=== PATIENT | male | born 1945 | race Caucasian/White ===

== ENCOUNTER 2019-08-29 11:58 | Observation (INO) | payer MEDICARE ==
[2019-08-29] MEDS: Nitroglycerin 0.4 MG Tab.SL SL PRN ×3 (12:14→12:45)
[2019-08-29] MEDS: Sodium Chloride 0.9% 1,000 ML IV SCH ×2 (12:17→20:35)
[2019-08-29] MEDS ORDERED: Alum Hydroxide/Mag Hydroxide 15 ML, Lidocaine 2% 15 ML PO ONE ×2 (12:52)
--- NOTE | 2019-08-29 13:25 | EDM.PDOC ---
ED HPI GENERAL MEDICAL PROBLEM - General Chief Complaint: Chest Pain Stated Complaint: CHEST PAIN Time Seen by Provider: 08/29/19 12:30 Source of Information: Reports: Patient History Limitations: Reports: No Limitations - History of Present Illness INITIAL COMMENTS - FREE TEXT/NARRATIVE: presents with retrosternal chest pressur e, non radiaiting , associated with increased frequency of PVCs. States symptoms have león gettign worse since the lst 2 months , in varsha last 2 weeks gest fmore frequrent pressueure inthe chest , he was awake the whole of last night as it did not resove as it usaull y dose , so he came in today . No diaphoreses , prolonged dry cough , no fever or chisll , no leg swelling no orthopnea . deos get sob with exertion on occasion pt stated he has appt [facility] baby counselor on 09/12 ( initial siad he has prodcedure ), I called and was told Dr Kristen agudelo saw him 10/2018 and he has appt [facility] to be seen on 126 currently he has a monitor in place on coumadin Onset: Gradual Onset Date: 08/28/19 (lots of pain and pressure at night) Duration: Hour(s): Location: Reports: Chest Quality: Reports: Ache, Pressure Severity: Moderate Improves with: Reports: Rest Worsens with: Reports: Other (stress, had lot of stress this am) Associated Symptoms: Reports: Chest Pain, Malaise, Shortness of Breath, Weakness Treatments 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: Reports: Aspirin - Related Data Allergies Allergy/AdvReac Type Severity Reaction Status Date / Time venom-honey bee Allergy Anaphylactic Verified 12/10/13 14:51 [bee venom (honey bee)] Shock Home Meds: Home Meds Calcium Carbonate/Vitamin D3 [Calcium 600 + Vit D Tablet] 1 each PO DAILY [History] Carboxymethyl/Gly/Poly80/Pf [Refresh Optive Advanced Drops] 1 each OP QID PRN [History] Desoximetasone [Topicort 0.25% Crm] 15 gm TOP BID PRN 12/10/13 [History] Fluticasone Propionate [Flonase] 1 spray NS BID 12/10/13 [History] Furosemide [Lasix] 40 mg PO DAILY 12/10/13 [History] Metoprolol Succinate [Toprol XL] 50 mg PO DAILY 12/10/13 [History] Acetaminophen [Tylenol] 650 mg PO Q6H PRN 08/29/19 [History] Aspirin 81 mg PO DAILY 08/29/19 [History] EPINEPHrine [Epipen] 0.3 mg IM ASDIRECTED PRN 08/29/19 [History] Finasteride 5 mg PO DAILY 08/29/19 [History] Isosorbide Mononitrate [Imdur] 30 mg PO BID 08/29/19 [History] Lansoprazole [Prevacid] 30 mg PO DAILY 08/29/19 [History] Nitroglycerin [Nitrostat] 0.4 mg SL Q5M PRN 08/29/19 [History] Rosuvastatin [Crestor] 10 mg PO DAILY 08/29/19 [History] Tamsulosin [Tamsulosin 24 Hr] 0.4 mg PO DAILY 08/29/19 [History] Warfarin [Coumadin] 5 mg PO TU 08/29/19 [History] Warfarin [Coumadin] 7.5 mg PO SUMOWETHFRSA 08/29/19 [History] amLODIPine [Norvasc] 2.5 mg PO DAILY 08/29/19 [History] lisinopriL [Lisinopril] 20 mg PO DAILY 08/29/19 [History] Past Medical History Cardiovascular History: Reports: Afib, Automatic Implantable Cardioverter Defibrillators, Hypertension, ND, Stents, Syncope Genitourinary History: Reports: Other (See Below) (gross hematuria) Social & Family History - Family History Cardiac: Reports: CAD, Prior Cardiac Arrest ED ROS GENERAL - Review of Systems Review Of Systems: See Below Constitutional: Reports: Malaise, Weakness HEENT: Reports: No Symptoms Respiratory: Reports: Shortness of Breath Cardiovascular: Reports: Chest Pain Endocrine: Reports: No Symptoms GI/Abdominal: Reports: Abdominal Pain (epigastric pain) : Reports: No Symptoms Musculoskeletal: Reports: No Symptoms Neurological: Reports: No Symptoms, Headache. Denies: Trouble Speaking, Difficulty Walking, Gait Disturbance Psychiatric: Reports: Anxiety Hematologic/Lymphatic: Reports: No Symptoms Immunologic: Reports: No Symptoms ED EXAM, GENERAL - Physical Exam Exam: See Below Exam Limited By: No Limitations General Appearance: Alert, WD/WN, No Apparent Distress Ears: Normal External Exam Ear Exam: Bilateral Ear: TM normal Nose: Normal Inspection, Normal Mucosa Head: Atraumatic Neck: Supple, Non-Tender, Full Range of Motion Respiratory/Chest: Lungs Clear, Normal Breath Sounds Cardiovascular: No Edema, Irregularly Irregular GI/Abdominal: Normal Bowel Sounds, Soft, Non-Tender Back Exam: Full Range of Motion. No: CVA Tenderness (R), CVA Tenderness (L) Extremities: Normal Range of Motion. No: Pedal Edema Neurological: Alert, Oriented, CN II-XII Intact Psychiatric: Normal Affect Skin Exam: Warm, Intact Course - Vital Signs Last Recorded V/S: Last Vital Signs Temp Pulse Resp BP 114/64 08/29/19 12:45 Pulse Ox - Orders/Labs/Meds Orders: Active Orders 24 hr Category Date Time Status EKG Documentation Completion [RC] STAT Care 08/29/19 12:06 Active Chest 1V Frontal [CR] Stat Exams 08/29/19 12:06 Taken Sodium Chloride 0.9% [Normal Saline] 1,000 ml Med 08/29/19 12:15 Active IV ASDIRECTED Medication Orders Sodium Chloride (Normal Saline) 1,000 mls @ 150 mls/hr IV ASDIRECTED AYAAN Last Admin: 08/29/19 12:17 Dose: 150 mls/hr Labs: Laboratory Tests 08/29/19 08/29/19 08/29/19 Range/Units 12:21 12:21 12:21 WBC 8.9 (4.5-12.0) X10-3/uL RBC 3.85 L (4.30-5.75) x10(6)uL Hgb 8.7 L (13.5-17.8) g/dL Hct 28.4 L D (30.0-51.3) % MCV 73.8 L (80-96) fL MCH 22.7 L (27.7-33.6) pg MCHC 30.8 L (32.2-35.4) g/dL RDW 15.2 (11.5-15.5) % Plt Count 379 H (125-369) X10(3)uL MPV 8.0 (7.4-10.4) fL Neut % (Auto) 65.0 (46-82) % Lymph % (Auto) 21.8 (13-37) % [place] % (Auto) 10.8 (4-12) % Eos % (Auto) 2 (1.0-5.0) % Baso % (Auto) 1 (0-2) % Neut # (Auto) 5.8 (1.6-8.3) # Lymph # (Auto) 1.9 (0.6-5.0) # [place] # (Auto) 1.0 (0.0-1.3) # Eos # (Auto) 0.1 (0.0-0.8) # Baso # (Auto) 0.1 (0.0-0.2) # PT 22.4 H (8.7-11.1) INR 2.33 H (0.89-1.13) Sodium 139 (135-145) mmol/L Potassium 4.1 (3.5-5.3) mmol/L Chloride 102 (100-110) mmol/L Carbon Dioxide 26 (21-32) mmol/L BUN 15 (7-18) mg/dL Creatinine 0.9 (0.70-1.30) mg/dL Est Cr Clr Drug Dosing TNP Estimated GFR (MDRD) > 60 (>60) BUN/Creatinine Ratio 16.7 (9-20) Glucose 117 H (80-116) mg/dL Calcium 9.6 (8.6-10.2) mg/dL Magnesium (1.8-2.5) mg/dL Total Bilirubin 0.3 (0.1-1.3) mg/dL AST 21 (5-25) IU/L ALT 21 (12-36) U/L Alkaline Phosphatase 67 (56-112) IU/L Troponin I (<0.017-0.056) ng/mL NT-Pro-B Natriuret Pep (<=125) pg/mL Total Protein 7.5 (6.0-8.0) g/dL Albumin 3.9 (3.2-4.6) g/dL Globulin 3.6 g/dL Albumin/Globulin Ratio 1.1 08/29/19 08/29/19 08/29/19 Range/Units 12:21 12:21 12:21 WBC (4.5-12.0) X10-3/uL RBC (4.30-5.75) x10(6)uL Hgb (13.5-17.8) g/dL Hct (30.0-51.3) % MCV (80-96) fL MCH (27.7-33.6) pg MCHC (32.2-35.4) g/dL RDW (11.5-15.5) % Plt Count (125-369) X10(3)uL MPV (7.4-10.4) fL Neut % (Auto) (46-82) % Lymph % (Auto) (13-37) % [place] % (Auto) (4-12) % Eos % (Auto) (1.0-5.0) % Baso % (Auto) (0-2) % Neut # (Auto) (1.6-8.3) # Lymph # (Auto) (0.6-5.0) # [place] # (Auto) (0.0-1.3) # Eos # (Auto) (0.0-0.8) # Baso # (Auto) (0.0-0.2) # PT (8.7-11.1) INR (0.89-1.13) Sodium (135-145) mmol/L Potassium (3.5-5.3) mmol/L Chloride (100-110) mmol/L Carbon Dioxide (21-32) mmol/L BUN (7-18) mg/dL Creatinine (0.70-1.30) mg/dL Est Cr Clr Drug Dosing Estimated GFR (MDRD) (>60) BUN/Creatinine Ratio (9-20) Glucose (80-116) mg/dL Calcium (8.6-10.2) mg/dL Magnesium 1.9 (1.8-2.5) mg/dL Total Bilirubin (0.1-1.3) mg/dL AST (5-25) IU/L ALT (12-36) U/L Alkaline Phosphatase (56-112) IU/L Troponin I < 0.017 L (<0.017-0.056) ng/mL NT-Pro-B Natriuret Pep 147 H (<=125) pg/mL Total Protein (6.0-8.0) g/dL Albumin (3.2-4.6) g/dL Globulin g/dL Albumin/Globulin Ratio Meds: Medications Generic Name Dose Route Start Last Admin Trade Name Freq PRN Reason Stop Dose Admin Sodium Chloride 1,000 mls @ 150 mls/hr 08/29/19 12:15 08/29/19 12:17 Normal Saline IV 150 mls/hr ASDIRECTED AYAAN Administration Discontinued Medications Generic Name Dose Route Start Last Admin Trade Name Nilson PRN Reason Stop Dose Admin Al Hydroxide/Mg Hydroxide 15 0 ml 08/29/19 12:52 08/29/19 13:16 ml/ Lidocaine HCl 15 ml PO 08/29/19 12:53 15 ml ONETIME ONE Administration Morphine Sulfate 4 mg 08/29/19 12:10 Morphine IVPUSH 08/29/19 12:11 ONETIME ONE Nitroglycerin 0.4 mg 08/29/19 12:08 08/29/19 12:45 Nitrostat SL 0.4 mg Q5M PRN Administration Chest Pain - Re-Assessments/Exams Free Text/Narrative Re-Assessment/Exam: 08/29/19 13:59 labs reviewed, Cardiac labs are negative . has Hgb 8.7 with low MCV 08/29/19 14:00 EKG showed NSR with occasional PVC though had multiple PVCs on arrival chest pressure responded to Nitroglycerin: pt takes this as needed Departure - Departure Time of Disposition: 13:40 Disposition: Refer to Observation Clinical Impression: Unstable angina, Acute myocardial infarction, Anemia Referrals: Amadeo Levy MD [Primary Care Provider] - Forms: ED Department Discharge Sepsis Event Note - Focused Exam Vital Signs: Vital Signs BP 08/29/19 12:45 114/64 08/29/19 12:24 117/64 08/29/19 12:14 147/67 H Date Exam was Performed: 08/29/19 Time Exam was Performed: 13:48 - My Orders Last 24 Hours: My Active Orders 08/29/19 12:06 EKG Documentation Completion [RC] STAT Chest 1V Frontal [CR] Stat 08/29/19 12:15 Sodium Chloride 0.9% [Normal Saline] 1,000 ml IV ASDIRECTED - Assessment/Plan Last 24 Hours: My Active Orders 08/29/19 12:06 EKG Documentation Completion [RC] STAT Chest 1V Frontal [CR] Stat 08/29/19 12:15 Sodium Chloride 0.9% [Normal Saline] 1,000 ml IV ASDIRECTED
--- NOTE | 2019-08-29 14:06 | CR ---
INDICATION: Chest pain. CHEST, 1 VIEW: Portable AP upright view of the chest, 08/29/19 - no comparisons. The heart appears to be at the upper limits of normal in size to mildly enlarged. This is emphasized by the AP positioning, however. The aorta is tortuous and calcified in the arch area. Overlying EKG leads noted. Ventricular monitor is noted in place. No consolidating pneumonia or effusion was seen. IMPRESSION: No acute process. MTDD
[2019-08-29] MEDS ORDERED: CARBOXYMETHYL OP PRN (15:24)
[2019-08-29] MEDS ORDERED: [UNRECOGNIZED DRUG - OTHER] OP PRN (15:24)
[2019-08-29] MEDS ORDERED: GLY OP PRN (15:24)
[2019-08-29] MEDS ORDERED: Nitroglycerin 0.4 MG Tab.SL *PTOM SL PRN (15:24)
[2019-08-29] MEDS ORDERED: POLY80 OP PRN (15:24)
[2019-08-29] MEDS ORDERED: Sodium Chloride 0.65% Nasal Spray 45 ML Bottle NASBOTH PRN (15:24)
[2019-08-29] MEDS ORDERED: Warfarin Sliding Scale PO SCH (15:30)
--- NOTE | 2019-08-29 15:40 | PCM.HP.2 ---
H&P History of Present Illness - General Date of Service: 08/29/19 Admit Problem/Dx: Admission Diagnosis/Problem Admission Diagnosis/Problem Unstable angina pectoris Source of Information: Patient, Old Records, Provider - History of Present Illness Initial Comments - Free Text/Narative: Amadeo is 74 yr old male who presented to [facility] [place] this morning after having chest pressure, some shortness of breath last night, kept him awake, had EKG which showed NSR with occasional PVCs, given Aspirin 325 mg and sent to ER. He had taken Nitroglycerin x 1 prior to arrival to ER. He received 2 more doses of Nitroglycerin which helped with chest pressure. EKG showed NSR with occasional PVCs. He had ICD device check on 08/23/2019 which showed 14 atrial fibrillation episodes, 10 patient symptoms activated. Patient reported having chest pain, blacking out and fell but he states it was at Thanksgiving when that happened. He had been advised to go to ER but he did not. Defibrillator check also showed Sinus rhythm with bigeminal PVCs. He has appointment with Cardiology on Sep 12. Also history carotid artery stenosis. Last lipid was Aug 2018. Had a cologard test done which was negative. Doesn't remember when last colonoscopy was. Denies any hemoptysis, hematemesis, black or bloody stools , hematuria. Has not been told he is anemic. Last hemoglobin was 07/2018: 15. States he has more rhythm problems when he drinks coffee and has more stress. Brother reported to ER doc that he has been under more stress. - Related Data Allergies/Adverse Reactions: Allergies Allergy/AdvReac Type Severity Reaction Status Date / Time venom-honey bee Allergy Anaphylactic Verified 12/10/13 14:51 [bee venom (honey bee)] Shock Home Medications: Home Meds Calcium Carbonate/Vitamin D3 [Calcium 600 + Vit D Tablet] 3 each PO DAILY [History] Carboxymethyl/Gly/Poly80/Pf [Refresh Optive Advanced Drops] 1 each OP QID PRN [History] Furosemide [Lasix] 40 mg PO DAILY 12/10/13 [History] Metoprolol Succinate [Toprol XL] 75 mg PO DAILY 12/10/13 [History] Acetaminophen [Tylenol] 650 mg PO Q6H PRN 08/29/19 [History] Aspirin 81 mg PO DAILY 08/29/19 [History] EPINEPHrine [Epipen] 0.3 mg IM ASDIRECTED PRN 08/29/19 [History] Finasteride 5 mg PO DAILY 08/29/19 [History] Isosorbide Mononitrate [Imdur] 30 mg PO BID 08/29/19 [History] Lansoprazole [Prevacid] 30 mg PO DAILY 08/29/19 [History] Nitroglycerin [Nitrostat] 0.4 mg SL Q5M PRN 08/29/19 [History] Rosuvastatin [Crestor] 10 mg PO BEDTIME 08/29/19 [History] Sodium Chloride [Saline Nasal [place]] 1 spray NASBOTH QID PRN 08/29/19 [History] Tamsulosin [Tamsulosin 24 Hr] 0.4 mg PO DAILY 08/29/19 [History] Warfarin [Coumadin] 5 mg PO TU 08/29/19 [History] Warfarin [Coumadin] 7.5 mg PO SUMOWETHFRSA 08/29/19 [History] amLODIPine [Norvasc] 2.5 mg PO DAILY 08/29/19 [History] lisinopriL [Lisinopril] 20 mg PO DAILY 08/29/19 [History] Past Medical History Cardiovascular History: Reports: Afib, Automatic Implantable Cardioverter Defibrillators, CAD, High Cholesterol, Hypertension, DC, Stents, Syncope, Other (See Below) (carotid artery stenosis) Other Cardiovascular History: Paroxysmal atrial fibrillation Genitourinary History: Reports: Other (See Below) (gross hematuria) Hematologic History: Reports: Anticoagulation Therapy - Past Surgical History Cardiovascular Surgical History: Reports: Coronary Artery Stent GI Surgical History: Reports: Appendectomy, Hernia Repair/Other Male Surgical History: Reports: Prostatectomy (partial) Neurological Surgical History: Reports: Other (See Below) (back surgery 1976) Musculoskeletal Surgical History: Reports: Carpal Tunnel Social & Family History - Family History Cardiac: Reports: CAD, Prior Cardiac Arrest - Tobacco Use Smoking Status *Q: Former Smoker (quit 06/24/2015) - Alcohol Use Alcohol Use History: No - Recreational Drug Use Recreational Drug Use: No H&P Review of Systems - Review of Systems: Review Of Systems: See Below General: Reports: No Symptoms HEENT: Reports: No Symptoms Pulmonary: Reports: Shortness of Breath. Denies: Wheezing, Cough Cardiovascular: Reports: Chest Pain, Palpitations. Denies: Edema, Lightheadedness, Syncope Gastrointestinal: Denies: Abdominal Pain, Black Stool, Bloody Stool, Constipation, Diarrhea, Hematemesis, Nausea, Vomiting Genitourinary: Denies: Dysuria, Frequency, Hematuria Musculoskeletal: Denies: Arm Pain, Back Pain Skin: Reports: Pallor Psychiatric: Reports: No Symptoms Neurological: Reports: No Symptoms Hematologic/Lymphatic: Reports: Anemia Immunologic: Reports: Environmental Allergy Exam - Exam Exam: See Below - Vital Signs Vital Signs: Last Vital Signs Temp Pulse Resp BP 114/64 08/29/19 12:45 Pulse Ox - Exam General: Alert, Oriented, Cooperative. No: Mild Distress HEENT: PERRLA, Conjunctiva Clear, EACs Clear, EOMI, Hearing Intact, Mucosa Moist & [place], Nares Patent, Normal Nasal Septum, Posterior Pharynx Clear, TMs Clear Neck: Supple, Trachea Midline, Carotid Bruit Lungs: Clear to Auscultation, Normal Respiratory Effort Cardiovascular: Regular Rate, Regular Rhythm. No: Systolic Murmur GI/Abdominal Exam: Normal Bowel Sounds, Soft, Non-Tender, No Distention (Male) Exam: Deferred Rectal (Males) Exam: Deferred Extremities: No Pedal Edema Peripheral Pulses: 2+: Radial (L), Radial (R), Dorsalis Pedis (L), Dorsalis Pedis (R) Skin: Warm, Dry, Intact, Other (pale conjunctival mucosa) - Patient Data Lab Results Last 24 hrs: Laboratory Results - last 24 hr 08/29/19 08/29/19 08/29/19 Range/Units 12:21 12:21 12:21 WBC 8.9 (4.5-12.0) X10-3/uL RBC 3.85 L (4.30-5.75) x10(6)uL Hgb 8.7 L (13.5-17.8) g/dL Hct 28.4 L D (30.0-51.3) % MCV 73.8 L (80-96) fL MCH 22.7 L (27.7-33.6) pg MCHC 30.8 L (32.2-35.4) g/dL RDW 15.2 (11.5-15.5) % Plt Count 379 H (125-369) X10(3)uL MPV 8.0 (7.4-10.4) fL Neut % (Auto) 65.0 (46-82) % Lymph % (Auto) 21.8 (13-37) % [place] % (Auto) 10.8 (4-12) % Eos % (Auto) 2 (1.0-5.0) % Baso % (Auto) 1 (0-2) % Neut # (Auto) 5.8 (1.6-8.3) # Lymph # (Auto) 1.9 (0.6-5.0) # [place] # (Auto) 1.0 (0.0-1.3) # Eos # (Auto) 0.1 (0.0-0.8) # Baso # (Auto) 0.1 (0.0-0.2) # PT 22.4 H (8.7-11.1) INR 2.33 H (0.89-1.13) Sodium 139 (135-145) mmol/L Potassium 4.1 (3.5-5.3) mmol/L Chloride 102 (100-110) mmol/L Carbon Dioxide 26 (21-32) mmol/L BUN 15 (7-18) mg/dL Creatinine 0.9 (0.70-1.30) mg/dL Est Cr Clr Drug Dosing TNP Estimated GFR (MDRD) > 60 (>60) BUN/Creatinine Ratio 16.7 (9-20) Glucose 117 H (80-116) mg/dL Calcium 9.6 (8.6-10.2) mg/dL Magnesium (1.8-2.5) mg/dL Total Bilirubin 0.3 (0.1-1.3) mg/dL AST 21 (5-25) IU/L ALT 21 (12-36) U/L Alkaline Phosphatase 67 (56-112) IU/L Troponin I (<0.017-0.056) ng/mL NT-Pro-B Natriuret Pep (<=125) pg/mL Total Protein 7.5 (6.0-8.0) g/dL Albumin 3.9 (3.2-4.6) g/dL Globulin 3.6 g/dL Albumin/Globulin Ratio 1.1 08/29/19 08/29/19 08/29/19 Range/Units 12:21 12:21 12:21 WBC (4.5-12.0) X10-3/uL RBC (4.30-5.75) x10(6)uL Hgb (13.5-17.8) g/dL Hct (30.0-51.3) % MCV (80-96) fL MCH (27.7-33.6) pg MCHC (32.2-35.4) g/dL RDW (11.5-15.5) % Plt Count (125-369) X10(3)uL MPV (7.4-10.4) fL Neut % (Auto) (46-82) % Lymph % (Auto) (13-37) % [place] % (Auto) (4-12) % Eos % (Auto) (1.0-5.0) % Baso % (Auto) (0-2) % Neut # (Auto) (1.6-8.3) # Lymph # (Auto) (0.6-5.0) # [place] # (Auto) (0.0-1.3) # Eos # (Auto) (0.0-0.8) # Baso # (Auto) (0.0-0.2) # PT (8.7-11.1) INR (0.89-1.13) Sodium (135-145) mmol/L Potassium (3.5-5.3) mmol/L Chloride (100-110) mmol/L Carbon Dioxide (21-32) mmol/L BUN (7-18) mg/dL Creatinine (0.70-1.30) mg/dL Est Cr Clr Drug Dosing Estimated GFR (MDRD) (>60) BUN/Creatinine Ratio (9-20) Glucose (80-116) mg/dL Calcium (8.6-10.2) mg/dL Magnesium 1.9 (1.8-2.5) mg/dL Total Bilirubin (0.1-1.3) mg/dL AST (5-25) IU/L ALT (12-36) U/L Alkaline Phosphatase (56-112) IU/L Troponin I < 0.017 L (<0.017-0.056) ng/mL NT-Pro-B Natriuret Pep 147 H (<=125) pg/mL Total Protein (6.0-8.0) g/dL Albumin (3.2-4.6) g/dL Globulin g/dL Albumin/Globulin Ratio Result Diagrams: 08/29/19 12:21 08/29/19 12:21 Sepsis Event Note - Focused Exam Vital Signs: Vital Signs BP 08/29/19 12:45 114/64 08/29/19 12:24 117/64 08/29/19 12:14 147/67 H Date Exam was Performed: 08/29/19 Time Exam was Performed: 15:28 - Problem List (1) Chest pain SNOMED Code(s): 64980193 ICD Code: R07.9 - CHEST PAIN, UNSPECIFIED Status: Acute Current Visit: Yes (2) Paroxysmal atrial fibrillation SNOMED Code(s): 267068004 ICD Code: I48.0 - PAROXYSMAL ATRIAL FIBRILLATION Status: Acute Current Visit: Yes (3) Hypertension SNOMED Code(s): 86036615 ICD Code: I10 - ESSENTIAL (PRIMARY) HYPERTENSION Status: Chronic Current Visit: Yes (4) Hyperlipidemia SNOMED Code(s): 97493537 ICD Code: E78.5 - HYPERLIPIDEMIA, UNSPECIFIED Status: Chronic Current Visit: Yes (5) ICD (implantable cardioverter-defibrillator) in place SNOMED Code(s): 104225169 ICD Code: Z95.810 - PRESENCE OF AUTOMATIC (IMPLANTABLE) CARDIAC DEFIBRILLATOR Status: Chronic Current Visit: Yes Onset Date: 08/2018 Problem List Initiated/Reviewed/Updated: Yes Orders Last 24hrs: Active Orders 24 hr Category Date Time Status Patient Status [ADT] Routine ADT 08/29/19 14:46 Active Anticoag Warfarin Education *Q [RC] DAILY Care 08/29/19 15:04 Ordered Antiembolic Devices [RC] .Routine Care 08/29/19 14:48 Active Cardiac Education [RC] Click to Edit Care 08/29/19 15:04 Ordered Cardiac Monitoring [RC] CONTINUOUS Care 08/29/19 15:05 Ordered EKG Documentation Completion [RC] ASDIRECTED Care 08/29/19 18:00 Ordered EKG Documentation Completion [RC] ASDIRECTED Care 08/30/19 00:00 Ordered EKG Documentation Completion [RC] ASDIRECTED Care 08/30/19 06:00 Ordered EKG Documentation Completion [RC] STAT Care 08/29/19 12:06 Active May Shower [RC] ASDIRECTED Care 08/29/19 15:12 Ordered Oxygen Therapy [RC] PRN Care 08/29/19 15:04 Ordered Pulse Oximetry [RC] PRN Care 08/29/19 14:46 Active Up ad Patricia [RC] ASDIRECTED Care 08/29/19 15:04 Ordered VTE/DVT Education [RC] Click to Edit Care 08/29/19 14:48 Active VTE/DVT Education [RC] Per Unit Routine Care 08/29/19 15:04 Inactive Vital Signs [RC] Q4H Care 08/29/19 14:46 Active Heart Healthy Diet [DIET] Diet 08/29/19 Dinner Ordered BASIC METABOLIC PANEL,BMP [CHEM] Routine Lab 08/30/19 06:00 Ordered CBC WITH AUTO DIFF [HEME] Routine Lab 08/30/19 06:00 Ordered INR,PT,PROTHROMBIN TIME [COAG] Routine Lab 08/30/19 06:00 Ordered LIPID PANEL [CHEM] Routine Lab 08/30/19 06:00 Ordered TROPONIN I [CHEM] Routine Lab 08/29/19 18:00 Ordered TROPONIN I [CHEM] Routine Lab 08/30/19 06:00 Ordered TROPONIN I [CHEM] Timed Lab 08/30/19 00:00 Ordered Acetaminophen [Tylenol] Med 08/29/19 15:24 Ordered 650 mg PO Q6H PRN Aspirin Med 08/30/19 09:00 Ordered 81 mg PO DAILY Aspirin Med 08/30/19 09:00 Ordered 81 mg PO DAILY Calcium Carbonate/Vitamin D3 [Calcium 600 + Vit D Med 08/30/19 09:00 Ordered Tablet] 3 each PO DAILY Carboxymethyl/Gly/Poly80/Pf [Refresh Optive Advanced Med 08/29/19 15:24 Ordered Drops] 1 each OP QID PRN Finasteride [Proscar] Med 08/30/19 09:00 Ordered 5 mg PO DAILY Furosemide [Lasix] Med 08/30/19 09:00 Ordered 40 mg PO DAILY Isosorbide Mononitrate [Imdur] Med 08/29/19 21:00 Ordered 30 mg PO BID Lansoprazole [Prevacid] Med 08/30/19 09:00 Ordered 30 mg PO DAILY Metoprolol Succinate [Toprol XL] Med 08/30/19 09:00 Ordered 75 mg PO DAILY Nitroglycerin [Nitrostat] Med 08/29/19 15:24 Ordered 0.4 mg SL Q5M PRN Rosuvastatin [Crestor] Med 08/29/19 21:00 Ordered 10 mg PO BEDTIME Sodium Chloride 0.65% [Gerald Nasal [place]] Med 08/29/19 15:24 Ordered 1 spray NASBOTH QID PRN Sodium Chloride 0.9% [Normal Saline] 1,000 ml Med 08/29/19 12:15 Active IV ASDIRECTED Tamsulosin [Flomax] Med 08/30/19 09:00 Ordered 0.4 mg PO DAILY Warfarin Sliding Scale [Coumadin Sliding Scale] Med 08/29/19 15:30 Ordered 1 each PO ASDIRECTED Warfarin [Coumadin] Med 08/30/19 15:24 Ordered 5 mg PO TU Warfarin [Coumadin] Med 08/29/19 15:30 Ordered 7.5 mg PO SUMOWETHFRSA amLODIPine [Norvasc] Med 08/30/19 09:00 Ordered 2.5 mg PO DAILY lisinopriL [Prinivil] Med 08/30/19 09:00 Ordered 20 mg PO DAILY Antiembolic Hose [OM.PC] Per Unit Routine Oth 08/29/19 15:05 Ordered DVT/VTE Prophylaxis Reflex [OM.PC] Per Unit Routine Oth 08/29/19 14:46 Ordered Resuscitation Status Routine Resus Stat 08/29/19 14:45 Ordered EKG 12 Lead [EK] Routine Ther 08/30/19 00:00 Ordered EKG 12 Lead [EK] Routine Ther 08/30/19 06:00 Ordered EKG 12 Lead [EK] Urgent Ther 08/29/19 18:00 Ordered Medication Orders Acetaminophen (Tylenol) 650 mg PO Q6H PRN PRN Reason: MILD PAIN Amlodipine Besylate (Norvasc) 2.5 mg PO DAILY [facility] Aspirin (Aspirin) 81 mg PO DAILY [facility] Aspirin (Aspirin) 81 mg PO DAILY [facility] Finasteride (Proscar) 5 mg PO DAILY [facility] Furosemide (Lasix) 40 mg PO DAILY [facility] Sodium Chloride (Normal Saline) 1,000 mls @ 100 mls/hr IV ASDIRECTED AYAAN Last Admin: 08/29/19 12:17 Dose: 150 mls/hr Isosorbide Mononitrate (Imdur) 30 mg PO BID [facility] Lisinopril (Prinivil) 20 mg PO DAILY [facility] Metoprolol Succinate (Toprol Xl) 75 mg PO DAILY [facility] Nitroglycerin (Nitrostat) 0.4 mg SL Q5M PRN PRN Reason: Chest Pain Non-Formulary Medication (Calcium Carbonate/Vitamin D3 [Calcium 600 + Vit D Tablet]) 3 each PO DAILY [facility] Non-Formulary Medication (Carboxymethyl/Gly/Poly80/Pf [Refresh Optive Advanced Drops]) 1 each OP QID PRN PRN Reason: Dry Eyes Non-Formulary Medication (Lansoprazole [Prevacid]) 30 mg PO DAILY [facility] Rosuvastatin Calcium (Crestor) 10 mg PO BEDTIME [facility]YA[facility] Sodium Chloride (Gerald Nasal [place]) ml NASBOTH QID PRN PRN Reason: Dryness Tamsulosin HCl (Flomax) 0.4 mg PO DAILY [facility] Warfarin Sodium (Coumadin) 5 mg PO TU [facility] Warfarin Sodium (Coumadin) 7.5 mg PO SUMOWETHFRSA [facility] Warfarin Sodium (Coumadin Sliding Scale) 1 each PO ASDIRECTED AYAAN Assessment/Plan Comment:: 1. Admit for observation: serial cardiac enzymes & EKGs, telemetry monitoring. Lipid panel in am. Nitroglycerin prn. Continue home Lisinopril, metoprolol, Crestor. 2. INR daily, pharmacy to adjust Coumadin. 3. Fecal occult test, Iron panel in am. UA to check urine as history of gross hematuria. 4. Cardiac diet, no caffeine. 5. Continue home medications. 6. FULL CODE. - Mortality Measure Prognosis:: Good
[2019-08-29] MEDS ORDERED: Warfarin 5 MG Tab *PTOM PO SCH (17:00)
[2019-08-29] MEDS ORDERED: Rosuvastatin 10 MG Tab *PTOM PO SCH (21:00)
[2019-08-29] MEDS: Isosorbide Mononitrate 30 MG Tab.ER *PTOM PO SCH (21:32)
[2019-08-30] MEDS: Sodium Chloride 0.9% 1,000 ML IV SCH (06:44)
[2019-08-30] MEDS: Isosorbide Mononitrate 30 MG Tab.ER *PTOM PO SCH (08:43)
[2019-08-30] MEDS ORDERED: Aspirin 81 MG Tab.Chew *PTOM PO SCH (09:00)
[2019-08-30] MEDS ORDERED: Lisinopril 20 MG Tab *PTOM PO SCH (09:00)
[2019-08-30] MEDS ORDERED: Furosemide 40 MG Tab *PTOM PO SCH (09:00)
[2019-08-30] MEDS ORDERED: Metoprolol Succinate 50 MG Tab.ER *PTOM PO SCH (09:00)
[2019-08-30] MEDS ORDERED: amLODIPine 2.5 MG Tab *PTOM PO SCH (09:00)
[2019-08-30] MEDS ORDERED: Finasteride 5 MG Tab *PTOM PO SCH (09:00)
[2019-08-30] MEDS ORDERED: Aspirin 81 MG Tab.Chew PO SCH (09:00)
[2019-08-30] MEDS ORDERED: Non-Formulary Medication 1 Each (Calcium Carbonate/Vitamin D3 [Calcium 600 + Vit D Tablet] PO SCH (09:00)
[2019-08-30] MEDS ORDERED: Tamsulosin 0.4 MG Cap.ER *PTOM PO SCH (09:00)
[2019-08-30] MEDS ORDERED: Metoprolol Succinate 50 MG Tab.ER *PTOM PO ONE (09:45)
[2019-08-30 12:01] VITALS: BP 128/60; PULSE 63
--- NOTE | 2019-08-30 13:58 | PCM.DCSUM1 ---
Discharge Summary - Hospital Course HPI Initial Comments: Amadeo is 74 yr old male who presented to [facility] this morning after having chest pressure, some shortness of breath last night, kept him awake, had EKG which showed NSR with occasional PVCs, given Aspirin 325 mg and sent to ER. He had taken Nitroglycerin x 1 prior to arrival to ER. He received 2 more doses of Nitroglycerin which helped with chest pressure. EKG showed NSR with occasional PVCs. He had ICD device check on 08/23/2019 which showed 14 atrial fibrillation episodes, 10 patient symptoms activated. Patient reported having chest pain, blacking out and fell but he states it was at Thanksgiving when that happened. He had been advised to go to ER but he did not. Defibrillator check also showed Sinus rhythm with bigeminal PVCs. He has appointment with Cardiology on Sep 12. Also history carotid artery stenosis. Last lipid was Aug 2018. Had a cologard test done which was negative. Doesn't remember when last colonoscopy was. Denies any hemoptysis, hematemesis, black or bloody stools , hematuria. Has not been told he is anemic. Last hemoglobin was 07/2018: 15. States he has more rhythm problems when he drinks coffee and has more stress. Brother reported to ER doc that he has been under more stress. Diagnosis: Stroke: No - Discharge Data Discharge Date: 08/30/19 Discharge Disposition: Home, Self-Care 01 Condition: Stable - Referral to Home Health Primary Care Physician: Amadeo Levy MD - Discharge Diagnosis/Problem(s) (1) Chest pain SNOMED Code(s): 18101447 ICD Code: R07.9 - CHEST PAIN, UNSPECIFIED Status: Resolved (2) Paroxysmal atrial fibrillation SNOMED Code(s): 203477374 ICD Code: I48.0 - PAROXYSMAL ATRIAL FIBRILLATION Status: Chronic Problem Details: NSR with Trigeminy, bigeminy PVCs on telemetry. Spoke with [facility], Dr Rascon who recommended increasing his Metoprolol to 100 mg daily and ECHO which was done today, results are pending. Asymptomatic at discharge. (3) Hypertension SNOMED Code(s): 89807183 ICD Code: I10 - ESSENTIAL (PRIMARY) HYPERTENSION Status: Chronic (4) Hyperlipidemia SNOMED Code(s): 56039608 ICD Code: E78.5 - HYPERLIPIDEMIA, UNSPECIFIED Status: Chronic (5) ICD (implantable cardioverter-defibrillator) in place SNOMED Code(s): 939483489 ICD Code: Z95.810 - PRESENCE OF AUTOMATIC (IMPLANTABLE) CARDIAC DEFIBRILLATOR Status: Chronic Onset Date: 08/2018 (6) Trigeminy SNOMED Code(s): 80212809 ICD Code: R00.8 - OTHER ABNORMALITIES OF HEART BEAT Status: Acute Problem Details: fluctuates between Trigeminy & bigeminy, increase Metoloprol to 100 mg daily, ECHO and follow up with Cardiology on Sep 12. - Patient Summary/Data Hospital Course: Patient had chest pressure symptoms around 2 am, corresponded to trigeminy PVCs on telemetry, has fluctuated between trigeminy and bigeminy since 2 am but asymptomatic. 4 sets of troponin were negative. No nitroglycerin given after ER doses. Lipid panel was well controlled. UA showed no blood. FOB was negative. Iron panel pending. Will need anemia workup as outpatient. Spoke with [facility] Dr Rascon who recommended getting an ECHO and increasing his dose of Metoprolol to 100 mg daily. Patient has 50 mg tablets and 100 mg tablets at home so he will take 2 tablets of his 50 mg tablet until gone then switch to 100 mg tablet. Follow up with Cardiology on Sep 12. - Patient Instructions Diet: Heart Healthy Diet Notify Provider of: Increased Pain Other/Special Instructions: Follow up with Dr Peterson Sep 12 as previously scheduled. Follow up with Dr Levy in 2 weeks to review iron panel, further anemia workup if needed. - Discharge Plan *PRESCRIPTION DRUG MONITORING PROGRAM REVIEWED*: No *COPY OF PRESCRIPTION DRUG MONITORING REPORT IN PATIENT MARISELA: No Home Medications: Home Meds Calcium Carbonate/Vitamin D3 [Calcium 600 + Vit D Tablet] 3 each PO DAILY [History] Carboxymethyl/Gly/Poly80/Pf [Refresh Optive Advanced Drops] 1 each OP QID PRN [History] Furosemide [Lasix] 40 mg PO DAILY 12/10/13 [History] Acetaminophen [Tylenol] 650 mg PO Q6H PRN 08/29/19 [History] Aspirin 81 mg PO DAILY 08/29/19 [History] EPINEPHrine [Epipen] 0.3 mg IM ASDIRECTED PRN 08/29/19 [History] Finasteride 5 mg PO DAILY 08/29/19 [History] Isosorbide Mononitrate [Imdur] 30 mg PO BID 08/29/19 [History] Lansoprazole [Prevacid] 30 mg PO DAILY 08/29/19 [History] Nitroglycerin [Nitrostat] 0.4 mg SL Q5M PRN 08/29/19 [History] Rosuvastatin [Crestor] 10 mg PO BEDTIME 08/29/19 [History] Sodium Chloride [Saline Nasal [place]] 1 spray NASBOTH QID PRN 08/29/19 [History] Tamsulosin [Flomax] 0.4 mg PO DAILY 08/29/19 [History] Warfarin [Coumadin] 5 mg PO MO 08/29/19 [History] Warfarin [Coumadin] 7.5 mg PO SUTUWETHFRSA 08/29/19 [History] amLODIPine [Norvasc] 2.5 mg PO DAILY 08/29/19 [History] lisinopriL [Lisinopril] 20 mg PO DAILY 08/29/19 [History] Metoprolol Succinate [Toprol XL 50mg] 100 mg PO DAILY #0 tab.er 08/30/19 [Rx] Patient Handouts: Angina Pectoris Forms: ED Department Discharge Referrals: Amadeo Levy MD [Primary Care Provider] - - Discharge Summary/Plan Comment DC Time >30 min.: No - General Info Date of Service: 08/30/19 Admission Dx/Problem (Free Text: Had some chest pressure without shortness of breath this morning around 2 am. Nothing now. No black or bloody stools or blood in urine. No abdominal pain. Had bowel movement this morning. - Patient Data Vitals - Most Recent: Last Vital Signs Temp 97.9 F 08/30/19 12:00 Pulse 63 08/30/19 12:00 Resp 18 08/30/19 12:00 BP 128/60 08/30/19 12:00 Pulse Ox 99 08/30/19 12:00 Weight - Most Recent: 209 lb 5 oz I&O - Last 24 hours: Intake & Output 08/29/19 08/30/19 08/30/19 22:59 06:59 14:59 Intake Total 1046 841 400 Balance 1046 841 400 Lab Results - Last 24 hrs: Laboratory Results - last 24 hr 08/29/19 08/30/19 08/30/19 Range/Units 18:05 00:25 06:35 WBC 9.3 (4.5-12.0) X10-3/uL RBC 3.64 L (4.30-5.75) x10(6)uL Hgb 8.3 L (13.5-17.8) g/dL Hct 26.8 L (30.0-51.3) % MCV 73.5 L (80-96) fL MCH 22.8 L (27.7-33.6) pg MCHC 31.0 L (32.2-35.4) g/dL RDW 15.6 H (11.5-15.5) % Plt Count 336 (125-369) X10(3)uL MPV 8.0 (7.4-10.4) fL Neut % (Auto) 59.2 (46-82) % Lymph % (Auto) 25.3 (13-37) % [place] % (Auto) 12.1 H (4-12) % Eos % (Auto) 3 (1.0-5.0) % Baso % (Auto) 1 (0-2) % Neut # (Auto) 5.6 (1.6-8.3) # Lymph # (Auto) 2.3 (0.6-5.0) # [place] # (Auto) 1.1 (0.0-1.3) # Eos # (Auto) 0.2 (0.0-0.8) # Baso # (Auto) 0.1 (0.0-0.2) # PT (8.7-11.1) INR (0.89-1.13) Sodium (135-145) mmol/L Potassium (3.5-5.3) mmol/L Chloride (100-110) mmol/L Carbon Dioxide (21-32) mmol/L BUN (7-18) mg/dL Creatinine (0.70-1.30) mg/dL Est Cr Clr Drug Dosing mL/min Estimated GFR (MDRD) (>60) BUN/Creatinine Ratio (9-20) Glucose (80-116) mg/dL Calcium (8.6-10.2) mg/dL Troponin I < 0.017 L < 0.017 L (<0.017-0.056) ng/mL Triglycerides (15-150) mg/dL Cholesterol (50-200) mg/dL LDL Cholesterol Direct (60-130) mg/dL HDL Cholesterol (40-75) mg/dL Cholesterol/HDL Ratio (0-5) Urine Color (YELLOW) Urine Appearance (CLEAR) Urine pH (5.0-6.5) Ur Specific [place] (1.010-1.025) Urine Protein (NEGATIVE) mg/dL Urine Glucose (UA) (NORMAL) mg/dL Urine Ketones (NEGATIVE) mg/dL Urine Occult Blood (NEGATIVE) Urine Nitrite (NEGATIVE) Urine Bilirubin (NEGATIVE) Urine Urobilinogen (NEGATIVE) mg/dL Ur Leukocyte Esterase (NEGATIVE) Urine RBC (0-5) Urine WBC (0-5) Ur Squamous Epith Cells (NS,R,O) Urine Bacteria (NS) 08/30/19 08/30/19 08/30/19 Range/Units 06:35 06:35 06:35 WBC (4.5-12.0) X10-3/uL RBC (4.30-5.75) x10(6)uL Hgb (13.5-17.8) g/dL Hct (30.0-51.3) % MCV (80-96) fL MCH (27.7-33.6) pg MCHC (32.2-35.4) g/dL RDW (11.5-15.5) % Plt Count (125-369) X10(3)uL MPV (7.4-10.4) fL Neut % (Auto) (46-82) % Lymph % (Auto) (13-37) % [place] % (Auto) (4-12) % Eos % (Auto) (1.0-5.0) % Baso % (Auto) (0-2) % Neut # (Auto) (1.6-8.3) # Lymph # (Auto) (0.6-5.0) # [place] # (Auto) (0.0-1.3) # Eos # (Auto) (0.0-0.8) # Baso # (Auto) (0.0-0.2) # PT 27.2 H (8.7-11.1) INR 2.83 H (0.89-1.13) Sodium 140 (135-145) mmol/L Potassium 4.4 (3.5-5.3) mmol/L Chloride 106 (100-110) mmol/L Carbon Dioxide 24 (21-32) mmol/L BUN 13 (7-18) mg/dL Creatinine 0.7 (0.70-1.30) mg/dL Est Cr Clr Drug Dosing 100.10 mL/min Estimated GFR (MDRD) > 60 (>60) BUN/Creatinine Ratio 18.6 (9-20) Glucose 92 (80-116) mg/dL Calcium 9.0 (8.6-10.2) mg/dL Troponin I < 0.017 L (<0.017-0.056) ng/mL Triglycerides 99 (15-150) mg/dL Cholesterol 140 (50-200) mg/dL LDL Cholesterol Direct 64 (60-130) mg/dL HDL Cholesterol 54 (40-75) mg/dL Cholesterol/HDL Ratio 2.6 (0-5) Urine Color (YELLOW) Urine Appearance (CLEAR) Urine pH (5.0-6.5) Ur Specific [place] (1.010-1.025) Urine Protein (NEGATIVE) mg/dL Urine Glucose (UA) (NORMAL) mg/dL Urine Ketones (NEGATIVE) mg/dL Urine Occult Blood (NEGATIVE) Urine Nitrite (NEGATIVE) Urine Bilirubin (NEGATIVE) Urine Urobilinogen (NEGATIVE) mg/dL Ur Leukocyte Esterase (NEGATIVE) Urine RBC (0-5) Urine WBC (0-5) Ur Squamous Epith Cells (NS,R,O) Urine Bacteria (NS) 08/30/19 Range/Units 11:00 WBC (4.5-12.0) X10-3/uL RBC (4.30-5.75) x10(6)uL Hgb (13.5-17.8) g/dL Hct (30.0-51.3) % MCV (80-96) fL MCH (27.7-33.6) pg MCHC (32.2-35.4) g/dL RDW (11.5-15.5) % Plt Count (125-369) X10(3)uL MPV (7.4-10.4) fL Neut % (Auto) (46-82) % Lymph % (Auto) (13-37) % [place] % (Auto) (4-12) % Eos % (Auto) (1.0-5.0) % Baso % (Auto) (0-2) % Neut # (Auto) (1.6-8.3) # Lymph # (Auto) (0.6-5.0) # [place] # (Auto) (0.0-1.3) # Eos # (Auto) (0.0-0.8) # Baso # (Auto) (0.0-0.2) # PT (8.7-11.1) INR (0.89-1.13) Sodium (135-145) mmol/L Potassium (3.5-5.3) mmol/L Chloride (100-110) mmol/L Carbon Dioxide (21-32) mmol/L BUN (7-18) mg/dL Creatinine (0.70-1.30) mg/dL Est Cr Clr Drug Dosing mL/min Estimated GFR (MDRD) (>60) BUN/Creatinine Ratio (9-20) Glucose (80-116) mg/dL Calcium (8.6-10.2) mg/dL Troponin I (<0.017-0.056) ng/mL Triglycerides (15-150) mg/dL Cholesterol (50-200) mg/dL LDL Cholesterol Direct (60-130) mg/dL HDL Cholesterol (40-75) mg/dL Cholesterol/HDL Ratio (0-5) Urine Color Yellow (YELLOW) Urine Appearance Clear (CLEAR) Urine pH 7.0 H (5.0-6.5) Ur Specific [place] 1.005 L (1.010-1.025) Urine Protein Negative (NEGATIVE) mg/dL Urine Glucose (UA) Normal (NORMAL) mg/dL Urine Ketones Negative (NEGATIVE) mg/dL Urine Occult Blood Negative (NEGATIVE) Urine Nitrite Negative (NEGATIVE) Urine Bilirubin Negative (NEGATIVE) Urine Urobilinogen Normal (NEGATIVE) mg/dL Ur Leukocyte Esterase Small H (NEGATIVE) Urine RBC 0-5 (0-5) Urine WBC 0-5 (0-5) Ur Squamous Epith Cells Rare (NS,R,O) Urine Bacteria Few H (NS) PERLA Results - Last 24 hrs: Microbiology 08/30/19 11:45 Stool Occult Blood (PERLA) - Final Stool / Feces NEGATIVE OCCULT BLOOD REFERENCE RANGE: NEGATIVE Med Orders - Current: Current Medications Discontinued Medications Acetaminophen (Tylenol Extra Strength) 500 mg PO Q6H PRN PRN Reason: MILD PAIN Amlodipine Besylate (Norvasc) 2.5 mg PO DAILY [facility] Last Admin: 08/30/19 08:45 Dose: 2.5 mg Aspirin (Aspirin) 81 mg PO DAILY [facility] Last Admin: 08/30/19 08:42 Dose: 81 mg Al Hydroxide/Mg Hydroxide 15 (ml/ Lidocaine HCl 15 ml) 0 ml PO ONETIME ONE Stop: 08/29/19 12:53 Last Admin: 08/29/19 13:16 Dose: 15 ml Finasteride (Proscar) 5 mg PO DAILY [facility] Last Admin: 08/30/19 08:46 Dose: 5 mg Furosemide (Lasix) 40 mg PO DAILY [facility] Last Admin: 08/30/19 08:44 Dose: 40 mg Sodium Chloride (Normal Saline) 1,000 mls @ 100 mls/hr IV ASDIRECTED [facility] Last Admin: 08/30/19 06:44 Dose: 100 mls/hr Isosorbide Mononitrate (Imdur) 30 mg PO BID [facility] Last Admin: 08/30/19 08:43 Dose: 30 mg Lisinopril (Prinivil) 20 mg PO DAILY [facility] Last Admin: 08/30/19 08:44 Dose: 20 mg Metoprolol Succinate (Toprol Xl) 75 mg PO DAILY [facility] Last Admin: 08/30/19 08:47 Dose: 75 mg Metoprolol Succinate (Toprol Xl) 25 mg PO ONETIME ONE Stop: 08/30/19 09:46 Last Admin: 08/30/19 10:46 Dose: 25 mg Morphine Sulfate (Morphine) 4 mg IVPUSH ONETIME ONE Stop: 08/29/19 12:11 Last Admin: 08/29/19 15:37 Dose: Not Given Nitroglycerin (Nitrostat) 0.4 mg SL Q5M PRN PRN Reason: Chest Pain Last Admin: 08/29/19 12:45 Dose: 0.4 mg Nitroglycerin (Nitrostat) 0.4 mg SL Q5M PRN PRN Reason: Chest Pain Non-Formulary Medication (Calcium Carbonate/Vitamin D3 [Calcium 600 + Vit D Tablet]) 3 each PO DAILY [facility] Non-Formulary Medication (Carboxymethyl/Gly/Poly80/Pf [Refresh Optive Advanced Drops]) 1 each OP QID PRN PRN Reason: Dry Eyes (Lansoprazole [ Prevacid] 30 Mg) * Ptom 30 mg PO DAILY [facility] Last Admin: 08/30/19 08:44 Dose: 30 mg Rosuvastatin Calcium (Crestor) 10 mg PO BEDTIME [facility] Last Admin: 08/29/19 21:31 Dose: 10 mg Sodium Chloride ([place] Nasal [place]) 0 ml NASBOTH QID PRN PRN Reason: Dryness Tamsulosin HCl (Flomax) 0.4 mg PO DAILY [facility] Last Admin: 08/30/19 08:43 Dose: 0.4 mg Warfarin Sodium (Coumadin) 5 mg PO Mo@1600 [facility] Last Admin: 08/29/19 17:00 Dose: 5 mg Warfarin Sodium (Coumadin Sliding Scale) 1 each PO ASDIRECTED [facility] Warfarin Sodium (Coumadin) 7.5 mg PO SuTuWeThFrSa@1600 [facility] - Exam General: Reports: Alert, Oriented, Cooperative, No Acute Distress Lungs: Reports: Clear to Auscultation, Normal Respiratory Effort Cardiovascular: Reports: Regular Rate, Regular Rhythm GI/Abdominal Exam: Normal Bowel Sounds, Soft, Non-Tender, No Distention Extremities: No Pedal Edema
[2019-08-31 08:09] LABS: IRON BIND.CAP.(TIBC) 435 ug/dL (250-450); IRON SATURATION 3 % (15-55); IRON, SERUM 15 ug/dL (38-169); UIBC 420 ug/dL (111-343)
== END 2019-08-30 13:10 | disposition home or self-care (01) ==
LOC: FB.ED 11:58 → FB.MS 14:45
PROVIDERS: ADMIT Family Medicine; ATTEND Family Medicine
DX: R07.89 Other chest pain (principal); I48.0 Paroxysmal atrial fibrillation; E78.5 Hyperlipidemia, unspecified; R00.8 Other abnormalities of heart beat; I25.10 Atherosclerotic heart disease of native coronary artery without angina pectoris; I11.0 Hypertensive heart disease with heart failure; I50.9 Heart failure, unspecified; E78.00 Pure hypercholesterolemia, unspecified; I25.2 Old myocardial infarction; Z95.810 Presence of automatic (implantable) cardiac defibrillator; Z91.030 Bee allergy status; Z95.5 Presence of coronary angioplasty implant and graft; Z87.891 Personal history of nicotine dependence; Z79.899 Other long term (current) drug therapy
CPT/HCPCS: 36415; 71045; 80048; 80053; 80061; 81001; 82272; 83540; 83550; 83735; 83880; 84484; 85025; 85610; 93005; 93010; 93306; 99285; A9270; J7030; 94760

== ENCOUNTER 2019-10-31 07:12 | Emergency (ER) | payer MEDICARE ==
[2019-10-31] MEDS ORDERED: Ketorolac 30 MG/ML SDV IM ONE (07:45)
[2019-10-31] MEDS ORDERED: HYDROmorphone 2 MG/ML SDV IM ONE (07:45)
--- NOTE | 2019-10-31 07:55 | EDM.PDOC ---
ED HPI GENERAL MEDICAL PROBLEM - General Time Seen by Provider: 10/31/19 07:25 Source of Information: Reports: Patient History Limitations: Reports: No Limitations - History of Present Illness INITIAL COMMENTS - FREE TEXT/NARRATIVE: c/o neck pain x 4d pt states he was under a [employer] 4d ago, turned his head to the L, then the R, has had persistent pain went to walk-in yesterday and given cyclobenzaprine 10 mg, has taken 4 tabs without benefit using an old soft neck colalr barely able to turn head today has CV hx with stents x 3 from 5y ago as well as stent in each leg, hgb 8.3 from 3m ago in [employer], pt reports hgb 9.1 from 2w ago when he saw his PCP Dr Elliott pain is across his shoulders and entire neck, altho is more tender on the R no pain down arms, no weak, no numb/tingling his brother lives with him and drove him here - Related Data Allergies Allergy/AdvReac Type Severity Reaction Status Date / Time venom-honey bee Allergy Anaphylactic Verified 08/29/19 16:51 [bee venom (honey bee)] Shock Home Meds: Home Meds Calcium Carbonate/Vitamin D3 [Calcium 600 + Vit D Tablet] 3 each PO DAILY [History] Carboxymethyl/Gly/Poly80/Pf [Refresh Optive Advanced Drops] 1 each OP QID PRN [History] Furosemide [Lasix] 40 mg PO DAILY 12/10/13 [History] Acetaminophen [Tylenol] 650 mg PO Q6H PRN 08/29/19 [History] Aspirin 81 mg PO DAILY 08/29/19 [History] EPINEPHrine [Epipen] 0.3 mg IM ASDIRECTED PRN 08/29/19 [History] Finasteride 5 mg PO DAILY 08/29/19 [History] Isosorbide Mononitrate [Imdur] 30 mg PO BID 08/29/19 [History] Lansoprazole [Prevacid] 30 mg PO DAILY 08/29/19 [History] Nitroglycerin [Nitrostat] 0.4 mg SL Q5M PRN 08/29/19 [History] Rosuvastatin [Crestor] 10 mg PO BEDTIME 08/29/19 [History] Sodium Chloride [Saline Nasal [place]] 1 spray NASBOTH QID PRN 08/29/19 [History] Tamsulosin [Flomax] 0.4 mg PO DAILY 08/29/19 [History] Warfarin [Coumadin] 5 mg PO MO 08/29/19 [History] Warfarin [Coumadin] 7.5 mg PO SUTUWETHFRSA 08/29/19 [History] amLODIPine [Norvasc] 2.5 mg PO DAILY 08/29/19 [History] lisinopriL [Lisinopril] 20 mg PO DAILY 08/29/19 [History] Metoprolol Succinate [Toprol XL 50mg] 100 mg PO DAILY #0 tab.er 08/30/19 [Rx] traMADol HCl [Tramadol HCl] 50 mg PO Q6H PRN #15 tablet 10/31/19 [Rx] Past Medical History HEENT History: Reports: Impaired Vision Cardiovascular History: Reports: Afib, Automatic Implantable Cardioverter Defibrillators, CAD, High Cholesterol, Hypertension, SC, Stents, Syncope, Other (See Below) (carotid artery stenosis) Other Cardiovascular History: Paroxysmal atrial fibrillation Genitourinary History: Reports: Other (See Below) (gross hematuria) Other Genitourinary History: prostate removed partailly due to trauma Musculoskeletal History: Reports: Fracture Neurological History: Reports: Other (See Below) Other Neuro History: stroke Hematologic History: Reports: Anticoagulation Therapy - Past Surgical History Cardiovascular Surgical History: Reports: Coronary Artery Stent GI Surgical History: Reports: Appendectomy, Hernia Repair/Other Male Surgical History: Reports: Prostatectomy (partial) Neurological Surgical History: Reports: Other (See Below) (back surgery 1976) Musculoskeletal Surgical History: Reports: Carpal Tunnel Social & Family History - Family History Family Medical History: Noncontributory Cardiac: Reports: CAD, Prior Cardiac Arrest - Caffeine Use Caffeine Use: Reports: Coffee ED ROS GENERAL - Review of Systems Review Of Systems: See Below Constitutional: Reports: No Symptoms HEENT: Reports: No Symptoms Respiratory: Reports: No Symptoms Cardiovascular: Reports: No Symptoms Endocrine: Reports: No Symptoms GI/Abdominal: Reports: No Symptoms : Reports: No Symptoms Musculoskeletal: Reports: Neck Pain Skin: Reports: No Symptoms Neurological: Reports: No Symptoms Psychiatric: Reports: No Symptoms Hematologic/Lymphatic: Reports: No Symptoms Immunologic: Reports: No Symptoms ED EXAM, GENERAL - Physical Exam Exam: See Below Exam Limited By: No Limitations General Appearance: Alert, WD/WN, Mild Distress Nose: Nasal Deformity Throat/Mouth: Normal Inspection, Normal Voice, No Airway Compromise Head: Atraumatic, Normocephalic Neck: Other (sitting very stiffly, will not move neck even 5 degree in any direction, there is tightness and 1-2+ tender along the R lateral strap muscles , c-spine does not appear to be tender in the midline) Respiratory/Chest: No Respiratory Distress Cardiovascular: Regular Rate, Rhythm Back Exam: Normal Inspection Extremities: Normal Inspection Neurological: Alert, Oriented, CN II-XII Intact, Normal Cognition, No Motor/ Sensory Deficits Psychiatric: Normal Affect, Normal Mood Skin Exam: Warm, Dry, Intact, Normal Color, No Rash Lymphatic: No Adenopathy Course - Vital Signs Last Recorded V/S: Last Vital Signs Temp 36.4 C 10/31/19 07:39 Pulse 79 10/31/19 07:39 Resp 16 10/31/19 07:39 BP 155/71 H 10/31/19 07:39 Pulse Ox 97 10/31/19 07:39 - Orders/Labs/Meds Orders: Active Orders 24 hr Category Date Time Status Cervical Spine wo Cont [CT] Stat Exams 10/31/19 07:45 Ordered Meds: Medications Discontinued Medications Generic Name Dose Route Start Last Admin Trade Name Nilson PRN Reason Stop Dose Admin Hydromorphone HCl 1 mg 10/31/19 07:45 10/31/19 08:29 Dilaudid IM 10/31/19 07:46 1 mg ONETIME ONE Administration Ketorolac Tromethamine 30 mg 10/31/19 07:45 10/31/19 08:31 Toradol IM 10/31/19 07:46 30 mg ONETIME ONE Administration - Re-Assessments/Exams Free Text/Narrative Re-Assessment/Exam: 10/31/19 09:29 CT neck without dislocation or fx, MRI could be a consideration, however there are no signs/sxs of radiculopathy, pt informed that he may need joint fusion at some juncture will have close f/u with PCP Departure - Departure Time of Disposition: 09:22 Disposition: Home, Self-Care 01 Condition: Good 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 There are no bone fractures or bones that are dislocated or out of place. Continue the soft cervical collar for one week, longer if needed. Take the anti-inflammatory acetaminophen 500 mg 2 tabs 4 times a day for one week for this acute flare up, then decrease to 2 tabs 2 times a day for maintenance. Use heat (or ice) for 10 minutes 4 times a day. For spasm, use the cyclobenzaprine 10 mg 1 tab up to 3 times a day as needed. For pain, may also take tramadol 50 mg 1 tab every 6 hours as needed. No alcohol. See your doctor later this week. In some cases, additional imaging with an MRI can be beneficial, which your doctor can determine. Sepsis Event Note - Focused Exam Vital Signs: Vital Signs Temp Pulse Resp BP Pulse Ox 10/31/19 07:39 36.4 C 79 16 155/71 H 97 Date Exam was Performed: 10/31/19 Time Exam was Performed: 09:22 - My Orders Last 24 Hours: My Active Orders 10/31/19 07:45 Cervical Spine wo Cont [CT] Stat - Assessment/Plan Last 24 Hours: My Active Orders 10/31/19 07:45 Cervical Spine wo Cont [CT] Stat
[2019-10-31 08:23] VITALS: BP 155/71; PULSE 79
== END 2019-10-31 09:30 | disposition home or self-care (01) ==
LOC: FB.ED 07:12
DX: M47.812 Spondylosis without myelopathy or radiculopathy, cervical region (principal); I10 Essential (primary) hypertension; I25.10 Atherosclerotic heart disease of native coronary artery without angina pectoris; E78.00 Pure hypercholesterolemia, unspecified; I25.2 Old myocardial infarction; I48.0 Paroxysmal atrial fibrillation; Z95.5 Presence of coronary angioplasty implant and graft; Z79.01 Long term (current) use of anticoagulants; Z79.899 Other long term (current) drug therapy; Z79.82 Long term (current) use of aspirin
CPT/HCPCS: 72125; 96372; 99284; J1170; J1885

== ENCOUNTER 2020-08-22 06:56 | Day surgery (SDC) | payer MEDICARE ==
[2020-08-22] MEDS ORDERED: Propofol 200 MG/20 ML SDV IV ONE (06:57)
[2020-08-22] MEDS ORDERED: Lidocaine 1% PF 2 ML SDV INJECT ONE (06:57)
[2020-08-22] MEDS ORDERED: Glycopyrrolate 0.2 MG/ML 5 ML MDV IV ONE (06:57)
[2020-08-22] MEDS ORDERED: Sodium Chloride 0.9% 10 ML Syringe FLUSH PRN (07:00)
[2020-08-22] MEDS: Lactated Ringers 1,000 ML IV SCH (08:00)
--- NOTE | 2020-08-22 09:16 | PCM.OPNOTE ---
- General Post-Op/Procedure Note Date of Surgery/Procedure: 08/22/20 Operative Procedure(s): c scope with cold forceps and cold loop biopsy Findings: descending colon x2 polyps sigmoid colon polyp x1 internal hemorrhoid Pre Op Diagnosis: bleeding per rectum Post-Op Diagnosis: descending colon x2 polyps. sigmoid colon polyp x1. internal hemorrhoid Anesthesia Technique: MAC Primary Surgeon: Sravan Hernandez Anesthesia Provider: Amadeo Flores Pathology: descending colon x2 polyps sigmoid colon polyp x1 Complications: None Condition: Good Free Text/Narrative:: see dictation #[id number]
[2020-08-22 09:50] VITALS: BP 124/88; PULSE 66
--- NOTE | 2020-08-22 11:20 | OR ---
DATE OF OPERATION: 08/22/2020 SURGEON: Sravan Hernandez MD PROCEDURE PERFORMED: Colonoscopy with cold loop and cold forceps biopsy. PREOPERATIVE DIAGNOSIS: Blood per rectum. POSTOPERATIVE DIAGNOSES: Descending colon polyps x2, sigmoid polyp x1, and internal hemorrhoids. INDICATIONS FOR PROCEDURE: This is a 75-year-old white male who is referred with the above-mentioned history of some blood per rectum, bright red in nature. He was offered and accepted a colonoscopy. DESCRIPTION OF OPERATION: After an excellent IV sedation was administered, digital rectal exam was performed. No marked abnormality was noted. Flexible colonoscope was inserted and advanced to the cecum. Prep was excellent. The following findings were noted. Ascending colon, unremarkable. Transverse colon, unremarkable. Descending colon, in the mid descending colon, there was a small 5 mm sessile polyp that was biopsied with cold loop snare and then an additional polyp that was biopsied with cold forceps. In the sigmoid, there was also a small polyp, approximately 3 mm in size, biopsied with cold biopsy forceps. On retroflexion of the scope, there were some internal hemorrhoids and this is a probable source of his bleeding. The patient tolerated the procedure well. Results will be sent to him via letter. /[id number] /[id number]
== END 2020-08-22 09:55 | disposition home or self-care (01) ==
LOC: FB.SDS 06:56
PROVIDERS: ATTEND Surgery
DX: D12.2 Benign neoplasm of ascending colon (principal); D12.5 Benign neoplasm of sigmoid colon; K64.8 Other hemorrhoids; I25.10 Atherosclerotic heart disease of native coronary artery without angina pectoris; I10 Essential (primary) hypertension; I73.9 Peripheral vascular disease, unspecified; I25.2 Old myocardial infarction; I48.91 Unspecified atrial fibrillation; Z79.899 Other long term (current) drug therapy; Z88.8 Allergy status to other drugs, medicaments and biological substances; Z88.5 Allergy status to narcotic agent; Z88.7 Allergy status to serum and vaccine; Z91.030 Bee allergy status; Z90.49 Acquired absence of other specified parts of digestive tract; Z95.810 Presence of automatic (implantable) cardiac defibrillator; Z98.890 Other specified postprocedural states
CPT/HCPCS: 00811; 45380; 45385; 88305; J2001; J2704; J3490; J7120

== ENCOUNTER 2021-02-16 15:46 | Emergency (ER) | payer MEDICARE ==
[2021-02-16] MEDS: Sodium Chloride 0.9% 10 ML Syringe FLUSH PRN (16:05)
--- NOTE | 2021-02-16 16:18 | EDM.PDOC ---
ED HPI GENERAL MEDICAL PROBLEM - General Chief Complaint: Cardiovascular Problem Stated Complaint: tingling in chest Time Seen by Provider: 02/16/21 15:55 Source of Information: Reports: Patient History Limitations: Reports: No Limitations - History of Present Illness INITIAL COMMENTS - FREE TEXT/NARRATIVE: [place]ling in his anterior chest that gradually got worse. States usually when he gets this , he will take a Nitroquick and it resolve but today he took one nitro and it get worse so he decided to come in for evaluation has associated lightheadedness , has productive cough 9 quit smoking recently: reduced the amount he smokes Onset: Today Onset Date: 02/16/21 Onset Time: 13:00 Duration: Getting Worse Location: Reports: Chest Quality: Reports: Ache, Pressure Severity: Moderate Improves with: Reports: None Worsens with: Reports: None Context: Reports: Activity Associated Symptoms: Reports: Cough, Shortness of Breath, Weakness Left Chest Pain Score (Numeric/FACES): 4 - Related Data Allergies Allergy/AdvReac Type Severity Reaction Status Date / Time atorvastatin [From Lipitor] Allergy Other Verified 08/22/20 07:54 morphine Allergy Rash Verified 08/22/20 07:54 pneumococcal vaccine Allergy Other Verified 08/22/20 07:54 venom-honey bee Allergy Anaphylactic Verified 08/22/20 07:54 [bee venom (honey bee)] Shock Home Meds: Home Meds Calcium Carbonate/Vitamin D3 [Calcium 600 + Vit D Tablet] 3 each PO DAILY 12/10/13 [History] Carboxymethyl/Gly/Poly80/Pf [Refresh Optive Advanced Drops] 1 each EYEBOTH QID PRN 12/10/13 [History] Furosemide [Lasix] 40 mg PO DAILY 12/10/13 [History] Acetaminophen [Tylenol] 650 mg PO Q6H PRN 08/29/19 [History] Aspirin 81 mg PO DAILY 08/29/19 [History] EPINEPHrine [Epipen] 0.3 mg IM ASDIRECTED PRN 08/29/19 [History] Finasteride 5 mg PO DAILY 08/29/19 [History] Isosorbide Mononitrate [Imdur] 30 mg PO BID 08/29/19 [History] Lansoprazole [Prevacid] 30 mg PO DAILY 08/29/19 [History] Nitroglycerin [Nitrostat] 0.4 mg SL Q5M PRN 08/29/19 [History] Rosuvastatin [Crestor] 10 mg PO BEDTIME 08/29/19 [History] Tamsulosin [Flomax] 0.4 mg PO DAILY 08/29/19 [History] Warfarin [Coumadin] 5 mg PO ASDIRECTED 08/29/19 [History] amLODIPine [Norvasc] 2.5 mg PO DAILY 08/29/19 [History] lisinopriL [Lisinopril] 20 mg PO DAILY 08/29/19 [History] Acetaminophen with Codeine [Acetaminophen-Cod #3] 1 tab PO QID PRN 08/21/20 [History] Ascorbate Calcium [Vitamin C] 500 mg PO BID 08/21/20 [History] Desoximetasone [Topicort 0.25% Crm] 1 applic TOP BID PRN 08/21/20 [History] Ferrous Sulfate 325 mg PO BID 08/21/20 [History] Fluticasone Propionate [Flonase] 1 puff NASBOTH BID PRN 08/21/20 [History] Metoprolol Succinate [Toprol XL 100mg] 100 mg PO DAILY 08/21/20 [History] methocarbamoL [Robaxin] 500 mg PO TID 08/21/20 [History] traMADol HCl [Tramadol HCl] 50 mg PO TID 08/21/20 [History] Past Medical History HEENT History: Reports: Cataract, Impaired Vision, Sinusitis Cardiovascular History: Reports: Afib, Automatic Implantable Cardioverter Defibrillators, CAD, High Cholesterol, Hypertension, [place], PVD, Stents, Syncope, Other (See Below) Other Cardiovascular History: Paroxysmal atrial fibrillation, CORONARY ATHEROSCLEROSIS, CAROTID ARTERY STENOSIS, PALPITATIONS Respiratory History: Reports: Asthma, COPD Genitourinary History: Reports: Other (See Below) Other Genitourinary History: prostate removed partailly due to trauma, GROSS H EMATURIA, ERECTILE DYSFUNCTION Musculoskeletal History: Reports: Back Pain, Chronic, Fracture, Other (See Below) Other Musculoskeletal History: TRIGGER FINGER Neurological History: Reports: CVA, Other (See Below) Other Neuro History: stroke, CERVICALGIA Hematologic History: Reports: Anticoagulation Therapy Immunologic History: Reports: None - Past Surgical History Cardiovascular Surgical History: Reports: Coronary Artery Stent, Other (See Below) Other Cardiovascular Surgeries/Procedures: CORONARY ANGIOPLASTY, ILIAC STENT PLACEMENT GI Surgical History: Reports: Appendectomy, Colonoscopy, EGD, Hernia Repair/Other Male Surgical History: Reports: Prostatectomy Neurological Surgical History: Reports: Other (See Below) Musculoskeletal Surgical History: Reports: Carpal Tunnel, Other (See Below) Other Musculoskeletal Surgeries/Procedures:: L foot fracture repair, HARDWARE REMOVAL, ARTHRODESIS, BACK SURGERY, CARPAL TUNNEL RELEASE, CYST REMOVAL RIGHT KNEE Social & Family History - Family History Family Medical History: No Pertinent Family History Cardiac: Reports: CAD, Prior Cardiac Arrest - Caffeine Use Caffeine Use: Reports: Coffee ED ROS GENERAL - Review of Systems Review Of Systems: See Below Constitutional: Reports: Malaise, Weakness, Decreased Appetite HEENT: Reports: No Symptoms Respiratory: Reports: Shortness of Breath, Cough, Sputum Cardiovascular: Reports: Dyspnea on Exertion Endocrine: Reports: Fatigue GI/Abdominal: Reports: No Symptoms Musculoskeletal: Reports: No Symptoms Skin: Reports: No Symptoms Neurological: Reports: Dizziness Psychiatric: Reports: No Symptoms Hematologic/Lymphatic: Reports: No Symptoms Immunologic: Reports: No Symptoms ED EXAM, GENERAL - Physical Exam Exam: See Below Free Text/Narrative:: Frail looking Exam Limited By: No Limitations General Appearance: Alert, WD/WN, No Apparent Distress Eye Exam: Bilateral Eye: EOMI Ears: Normal External Exam Nose: Normal Inspection Throat/Mouth: Normal Inspection, Normal Oropharynx Head: Atraumatic, Normocephalic Neck: Supple, Non-Tender Respiratory/Chest: Decreased Breath Sounds, Rhonchi, Wheezing, Prolonged Expiration Cardiovascular: Regular Rate, Rhythm GI/Abdominal: Soft, Non-Tender Back Exam: Decreased Range of Motion. No: CVA Tenderness (R), CVA Tenderness (L) Extremities: Normal Range of Motion, Non-Tender, No Pedal Edema Neurological: Alert, Oriented, CN II-XII Intact, Normal Cognition, Abnormal Reflexes Psychiatric: Normal Mood Skin Exam: Warm, Dry, Intact #1 Interpretation EKG Date: 02/16/21 Time: 15:45 Rhythm: NSR [place]: Normal P-Wave: Present QRS: Normal ST-T: Normal QT: Normal Comparison: Change From Previous EKG Course - Vital Signs Last Recorded V/S: Last Vital Signs Temp 36.6 C 02/16/21 16:00 Pulse 69 02/16/21 16:00 Resp 11 L 02/16/21 16:00 BP 164/83 H 02/16/21 16:00 Pulse Ox 96 02/16/21 16:00 - Orders/Labs/Meds Orders: Active Orders 24 hr Category Date Time Status Chest 1V Frontal [CR] Stat Exams 02/16/21 16:10 Taken EKG 12 Lead [EK] Routine Ther 02/16/21 16:09 Ordered Labs: Laboratory Tests 02/16/21 02/16/21 02/16/21 Range/Units 16:10 16:10 16:10 WBC 10.3 H (3.2-10.1) x10-3/uL RBC 4.54 (3.90-5.90) x10(6)uL Hgb 14.5 (12.9-17.7) g/dL Hct 43.6 (38.3-50.1) % MCV 96.1 (80.8-98.7) fL MCH 32.0 (27.0-33.3) pg MCHC 33.3 (28.7-35.3) g/dL RDW 13.9 (12.4-15.0) % Plt Count 266 (117-477) x10(3)uL MPV 8.7 (6.7-11.0) fL Neut % (Auto) 67.1 (40.3-71.8) % Lymph % (Auto) 22.2 (15.8-45.3) % [place] % (Auto) 7.9 (5.5-15.2) % Eos % (Auto) 1.5 (0.1-6.8) % Baso % (Auto) 1.3 (0.3-3.8) % Neut # (Auto) 6.9 (1.7-6.9) x10-3/uL Lymph # (Auto) 2.3 (0.5-4.5) x10-3/uL [place] # (Auto) 0.8 (0.0-1.2) x10-3/uL Eos # (Auto) 0.2 (0.0-0.6) x10-3/uL Baso # (Auto) 0.1 (0.0-0.3) x10-3/uL PT (9.0-11.1) sec INR (1.00-1.24) Sodium 140 (135-145) mmol/L Potassium 4.1 (3.5-5.3) mmol/L Chloride 101 D (100-110) mmol/L Carbon Dioxide 26 (21-32) mmol/L BUN 13 (7-18) mg/dL Creatinine 0.8 (0.70-1.30) mg/dL Est Cr Clr Drug Dosing TNP Estimated GFR (MDRD) > 60 (>60) BUN/Creatinine Ratio 16.3 (9-20) Glucose 112 (80-116) mg/dL Calcium 9.3 (8.6-10.2) mg/dL Total Bilirubin 0.2 (0.1-1.3) mg/dL AST 17 D (5-25) IU/L ALT 24 D (12-36) U/L Alkaline Phosphatase 87 (56-112) IU/L Creatine Kinase (60-160) IU/L Troponin I 6.7 (4.0-60.3) pg/mL NT-Pro-B Natriuret Pep 109 (<=450) pg/mL Total Protein 7.3 (6.0-8.0) g/dL Albumin 3.7 (3.2-4.6) g/dL Globulin 3.6 g/dL Albumin/Globulin Ratio 1.0 02/16/21 02/16/21 Range/Units 16:10 16:10 WBC (3.2-10.1) x10-3/uL RBC (3.90-5.90) x10(6)uL Hgb (12.9-17.7) g/dL Hct (38.3-50.1) % MCV (80.8-98.7) fL MCH (27.0-33.3) pg MCHC (28.7-35.3) g/dL RDW (12.4-15.0) % Plt Count (117-477) x10(3)uL MPV (6.7-11.0) fL Neut % (Auto) (40.3-71.8) % Lymph % (Auto) (15.8-45.3) % [place] % (Auto) (5.5-15.2) % Eos % (Auto) (0.1-6.8) % Baso % (Auto) (0.3-3.8) % Neut # (Auto) (1.7-6.9) x10-3/uL Lymph # (Auto) (0.5-4.5) x10-3/uL [place] # (Auto) (0.0-1.2) x10-3/uL Eos # (Auto) (0.0-0.6) x10-3/uL Baso # (Auto) (0.0-0.3) x10-3/uL PT 20.1 H (9.0-11.1) sec INR 1.94 H (1.00-1.24) Sodium (135-145) mmol/L Potassium (3.5-5.3) mmol/L Chloride (100-110) mmol/L Carbon Dioxide (21-32) mmol/L BUN (7-18) mg/dL Creatinine (0.70-1.30) mg/dL Est Cr Clr Drug Dosing Estimated GFR (MDRD) (>60) BUN/Creatinine Ratio (9-20) Glucose (80-116) mg/dL Calcium (8.6-10.2) mg/dL Total Bilirubin (0.1-1.3) mg/dL AST (5-25) IU/L ALT (12-36) U/L Alkaline Phosphatase (56-112) IU/L Creatine Kinase 62 (60-160) IU/L Troponin I (4.0-60.3) pg/mL NT-Pro-B Natriuret Pep (<=450) pg/mL Total Protein (6.0-8.0) g/dL Albumin (3.2-4.6) g/dL Globulin g/dL Albumin/Globulin Ratio Meds: Medications Discontinued Medications Generic Name Dose Route Start Last Admin Trade Name Freq PRN Reason Stop Dose Admin Sodium Chloride 1,000 mls @ 100 mls/hr 02/16/21 16:45 02/16/21 16:34 Normal Saline IV 100 mls/hr ASDIRECTED AYAAN Administration Sodium Chloride 10 ml 02/16/21 16:05 02/16/21 16:05 Sodium Chloride 0.9% 10 Ml Syringe FLUSH 10 ml ASDIRECTED PRN Administration IV Use - Re-Assessments/Exams Free Text/Narrative Re-Assessment/Exam: 02/16/21 17:18 pt still has no pain since arrival , reviewed all labs : will send home to take prn NItroglycerin Departure - Departure Time of Disposition: 17:20 Disposition: Home, Self-Care 01 Condition: Fair Clinical Impression: Anginal chest pain at rest, Palpitations, Unstable angina, ICD (implantable cardioverter-defibrillator) in place Instructions: Angina, [id number] Referrals: Amadeo Levy MD [Primary Care Provider] - Forms: ED Department Discharge Additional Instructions: 1) Continue to take aspirin as needed 2) Make a follow up appointment to see your doctor for any concerns 3) Call with any concerns Sepsis Event Note (ED) - Focused Exam Vital Signs: Vital Signs Temp Pulse Resp BP Pulse Ox 02/16/21 16:00 36.6 C 69 11 L 164/83 H 96 - My Orders Last 24 Hours: My Active Orders 02/16/21 16:09 EKG 12 Lead [EK] Routine 02/16/21 16:10 Chest 1V Frontal [CR] Stat - Assessment/Plan Last 24 Hours: My Active Orders 02/16/21 16:09 EKG 12 Lead [EK] Routine 02/16/21 16:10 Chest 1V Frontal [CR] Stat
[2021-02-16] MEDS: Sodium Chloride 0.9% 1,000 ML IV SCH (16:34)
[2021-02-16 17:54] VITALS: BP 164/83; PULSE 69
--- NOTE | 2021-02-19 16:24 | CR ---
INDICATION: Cough. Chest pain. [id number] smoker. CHEST ONE VIEW: AP portable upright view of the chest 02/16/21 was compared with 08/29/19 and revealed a loop recorder overlying the waist of the heart and to the left. Overlying EKG leads are noted. The heart did not appear enlarged and it appeared normal in shape. The aorta is somewhat tortuous with calcification in the arch. Pulmonary markings are similar to the previous study without a definite active infiltrate or effusion. A small nodular-appearing density in the lower lung field on the right may represent a nipple shadow. IMPRESSION: 1. No definite acute process. Small nodular density at the lower lung field laterally on the right most likely represents nipple shadow. This could be confirmed by repeat chest x-ray or possibly CT of the chest as felt to be clinically necessary with this patient's history. 2. ASD aorta - loop recorder noted in place. MTDD
== END 2021-02-16 17:55 | disposition home or self-care (01) ==
LOC: FB.ED 15:46
DX: I20.0 Unstable angina (principal); R00.2 Palpitations; I48.91 Unspecified atrial fibrillation; E78.00 Pure hypercholesterolemia, unspecified; I25.2 Old myocardial infarction; I10 Essential (primary) hypertension; J44.9 Chronic obstructive pulmonary disease, unspecified; Z79.82 Long term (current) use of aspirin; Z79.899 Other long term (current) drug therapy; Z91.030 Bee allergy status; Z88.7 Allergy status to serum and vaccine; Z88.6 Allergy status to analgesic agent; Z88.8 Allergy status to other drugs, medicaments and biological substances; Z95.810 Presence of automatic (implantable) cardiac defibrillator
CPT/HCPCS: 36415; 71045; 80053; 82550; 83880; 84484; 85025; 85610; 93005; 99285; J7030

== ENCOUNTER 2021-04-28 16:58 | Emergency (ER) | payer MEDICARE ==
[2021-04-28 17:16] VITALS: BP 133/77; PULSE 70
--- NOTE | 2021-04-28 17:35 | EDM.PDOC ---
ED HPI GENERAL MEDICAL PROBLEM - General Chief Complaint: Laceration Stated Complaint: CUT R EAT Time Seen by Provider: 04/28/21 17:25 Source of Information: Reports: Patient, Old Records, RN History Limitations: Reports: No Limitations - History of Present Illness INITIAL COMMENTS - FREE TEXT/NARRATIVE: 76 yo male on Plavix nicked his R outer ear with a scissors while cutting his hair shortly ago. He had a hard time getting the bleeding to stop so came to the ER. He is uncertain about his tetanus status. Records show last tetanus was '16. 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: Other (see below) Other Treatments BUZZSAW OPERATOR: dry dressing Right Ear Pain Score (Numeric/FACES): 0 - Related Data Allergies Allergy/AdvReac Type Severity Reaction Status Date / Time atorvastatin [From Lipitor] Allergy Other Verified 08/22/20 07:54 morphine Allergy Rash Verified 08/22/20 07:54 pneumococcal vaccine Allergy Other Verified 08/22/20 07:54 venom-honey bee Allergy Anaphylactic Verified 08/22/20 07:54 [bee venom (honey bee)] Shock Home Meds: Home Meds Calcium Carbonate/Vitamin D3 [Calcium 600 + Vit D Tablet] 3 each PO DAILY 12/10/13 [History] Carboxymethyl/Gly/Poly80/Pf [Refresh Optive Advanced Drops] 1 each EYEBOTH QID PRN 12/10/13 [History] Furosemide [Lasix] 40 mg PO DAILY 12/10/13 [History] Acetaminophen [Tylenol] 650 mg PO Q6H PRN 08/29/19 [History] Aspirin 81 mg PO DAILY 08/29/19 [History] EPINEPHrine [Epipen] 0.3 mg IM ASDIRECTED PRN 08/29/19 [History] Finasteride 5 mg PO DAILY 08/29/19 [History] Isosorbide Mononitrate [Imdur] 30 mg PO BID 08/29/19 [History] Lansoprazole [Prevacid] 30 mg PO DAILY 08/29/19 [History] Nitroglycerin [Nitrostat] 0.4 mg SL Q5M PRN 08/29/19 [History] Rosuvastatin [Crestor] 10 mg PO BEDTIME 08/29/19 [History] Tamsulosin [Flomax] 0.4 mg PO DAILY 08/29/19 [History] Warfarin [Coumadin] 5 mg PO ASDIRECTED 08/29/19 [History] amLODIPine [Norvasc] 2.5 mg PO DAILY 08/29/19 [History] lisinopriL [Lisinopril] 20 mg PO DAILY 08/29/19 [History] Acetaminophen with Codeine [Acetaminophen-Cod #3] 1 tab PO QID PRN 08/21/20 [History] Ascorbate Calcium [Vitamin C] 500 mg PO BID 08/21/20 [History] Desoximetasone [Topicort 0.25% Crm] 1 applic TOP BID PRN 08/21/20 [History] Ferrous Sulfate 325 mg PO BID 08/21/20 [History] Fluticasone Propionate [Flonase] 1 puff NASBOTH BID PRN 08/21/20 [History] Metoprolol Succinate [Toprol XL 100mg] 100 mg PO DAILY 08/21/20 [History] methocarbamoL [Robaxin] 500 mg PO TID 08/21/20 [History] traMADol HCl [Tramadol HCl] 50 mg PO TID 08/21/20 [History] Past Medical History HEENT History: Reports: Cataract, Impaired Vision, Sinusitis Cardiovascular History: Reports: Afib, Automatic Implantable Cardioverter Defibrillators, CAD, High Cholesterol, Hypertension, [place], PVD, Stents, Syncope, Other (See Below) Other Cardiovascular History: Paroxysmal atrial fibrillation, CORONARY ATHEROSCLEROSIS, CAROTID ARTERY STENOSIS, PALPITATIONS Respiratory History: Reports: Asthma, COPD Genitourinary History: Reports: Other (See Below) Other Genitourinary History: prostate removed partailly due to trauma, GROSS HEMATURIA, ERECTILE DYSFUNCTION Musculoskeletal History: Reports: Back Pain, Chronic, Fracture, Other (See Below) Other Musculoskeletal History: TRIGGER FINGER Neurological History: Reports: CVA, Other (See Below) Other Neuro History: stroke, CERVICALGIA Hematologic History: Reports: Anticoagulation Therapy Immunologic History: Reports: None - Past Surgical History Cardiovascular Surgical History: Reports: Coronary Artery Stent, Other (See Below) Other Cardiovascular Surgeries/Procedures: CORONARY ANGIOPLASTY, ILIAC STENT PLACEMENT GI Surgical History: Reports: Appendectomy, Colonoscopy, EGD, Hernia Repair/Other Male Surgical History: Reports: Prostatectomy Neurological Surgical History: Reports: Other (See Below) Musculoskeletal Surgical History: Reports: Carpal Tunnel, Other (See Below) Other Musculoskeletal Surgeries/Procedures:: L foot fracture repair, HARDWARE REMOVAL, ARTHRODESIS, BACK SURGERY, CARPAL TUNNEL RELEASE, CYST REMOVAL RIGHT KNEE Social & Family History - Family History Family Medical History: No Pertinent Family History Cardiac: Reports: CAD, Prior Cardiac Arrest - Tobacco Use Tobacco Use Status *Q: Former Tobacco User Years of Tobacco use: 40 Packs/Tins Daily: 1 Used Tobacco, but Quit: Yes Month/Year Tobacco Last Used: 2 months - Caffeine Use Caffeine Use: Reports: Coffee - Recreational Drug Use Recreational Drug Use: No ED ROS GENERAL - Review of Systems Review Of Systems: See Below Constitutional: Reports: No Symptoms HEENT: Reports: Other (R auricle injury) Cardiovascular: Reports: No Symptoms Skin: Reports: Wound (small cut in the outer helix of his R ear, currently there is a hard clot present and no active bleeding. ) Neurological: Reports: No Symptoms ED EXAM, SKIN/RASH Exam: See Below Exam Limited By: No Limitations General Appearance: Alert, WD/WN, No Apparent Distress Ears: Other (clotted small wound on the outer R auricle. ) Nose: Normal Inspection, No Blood Throat/Mouth: Normal Lips, Normal Voice, No Airway Compromise Head: Atraumatic, Normocephalic Extremities: Normal Inspection Neurological: Alert, Oriented, CN II-XII Intact, Normal Cognition, No Motor/Sensory Deficits Psychiatric: Normal Affect, Normal Mood Skin: Warm, Dry, Normal Color, No Rash, Wound/Incision (tiny cut outer R helix of auricle). No: Intact Location, Skin: Head (R ear) Associated features: No: Warmth, Tenderness ED SKIN PROCEDURES - Laceration/Wound Repair Right Upper Ear Appearance: Superficial, Clean Skin Prep: Other (Hydrogen peroxide) Closed with: Other (Silver Nitrate Stick cautery) Lac/Wound length In cm: 0.1 Drain Placement: No Sterile Dressing Applied: Nurse Tetanus Status Addressed: Yes Complications: No Course - Vital Signs Last Recorded V/S: Last Vital Signs Temp 36.2 C 04/28/21 17:10 Pulse 70 04/28/21 17:10 Resp 18 04/28/21 17:10 BP 133/77 09/12/21 17:10 Pulse Ox 97 04/28/21 17:10 Departure - Departure Time of Disposition: 17:48 Disposition: Home, Self-Care 01 Condition: Good Clinical Impression: Wound, open, ear Qualifiers: Encounter type: initial encounter Open wound type: unspecified Laterality: right Qualified Code(s): S01.301A - Unspecified open wound of right ear, initial encounter - Discharge Information *PRESCRIPTION DRUG MONITORING PROGRAM REVIEWED*: Not Applicable *COPY OF PRESCRIPTION DRUG MONITORING REPORT IN PATIENT MARISELA: Not Applicable Instructions: Laceration Care, Adult, [id number] Referrals: Amadeo Levy MD [Primary Care Provider] - Forms: ED Department Discharge Additional Instructions: Leave your dressing on for 24 hrs if possible. Then remove dressing and keep Bacitracin on the wound until it is fully healed. Recheck as needed. Sepsis Event Note (ED) - Evaluation Sepsis Screening Result: No Definite Risk - Focused Exam Vital Signs: Vital Signs Temp Pulse Resp BP Pulse Ox 04/28/21 17:10 36.2 C 70 18 133/77 97
== END 2021-04-28 18:05 | disposition home or self-care (01) ==
LOC: FB.ED 16:58
DX: S01.311A Laceration without foreign body of right ear, initial encounter (principal); I48.91 Unspecified atrial fibrillation; I25.10 Atherosclerotic heart disease of native coronary artery without angina pectoris; E78.00 Pure hypercholesterolemia, unspecified; I10 Essential (primary) hypertension; I25.2 Old myocardial infarction; J44.9 Chronic obstructive pulmonary disease, unspecified; Z79.82 Long term (current) use of aspirin; Z79.01 Long term (current) use of anticoagulants; Z79.899 Other long term (current) drug therapy; Z88.5 Allergy status to narcotic agent; Z91.030 Bee allergy status; Z88.7 Allergy status to serum and vaccine; Z95.810 Presence of automatic (implantable) cardiac defibrillator; Z88.8 Allergy status to other drugs, medicaments and biological substances; Z86.73 Personal history of transient ischemic attack (TIA), and cerebral infarction without residual deficits; Z87.891 Personal history of nicotine dependence; W26.8XXA Contact with other sharp object(s), not elsewhere classified, initial encounter
CPT/HCPCS: 12011; 99282-25

== ENCOUNTER 2022-03-01 17:53 | Emergency (ER) | payer MEDICARE ==
[2022-03-01 21:15] VITALS: BP 146/75; PULSE 60
== END 2022-03-01 19:45 | disposition home or self-care (01) ==
LOC: FB.ED 17:53
DX: R31.9 Hematuria, unspecified (principal); I25.10 Atherosclerotic heart disease of native coronary artery without angina pectoris; J44.9 Chronic obstructive pulmonary disease, unspecified; I10 Essential (primary) hypertension; I25.2 Old myocardial infarction; Z86.73 Personal history of transient ischemic attack (TIA), and cerebral infarction without residual deficits; Z88.6 Allergy status to analgesic agent; Z88.7 Allergy status to serum and vaccine; Z91.030 Bee allergy status; Z79.899 Other long term (current) drug therapy; Z79.82 Long term (current) use of aspirin; Z90.49 Acquired absence of other specified parts of digestive tract
CPT/HCPCS: 81001; 99283

== ENCOUNTER 2022-07-30 12:07 | Inpatient (IN) | payer MEDICARE ==
[2022-07-30] MEDS ORDERED: Sodium Chloride 0.9% 10 ML Syringe FLUSH PRN (12:09)
[2022-07-30 12:28] LABS: ESTIMATED GFR 92 mL/min (>60)
[2022-07-30] MEDS ORDERED: Iopamidol 755 Mg/ML 75 ML Bottle IV ONE (13:15)
[2022-07-30] MEDS ORDERED: Iopamidol 612 MG/ML 75 ML Bottle IV SCH (13:23)
[2022-07-30] MEDS ORDERED: Apixaban 5 MG Tab PO SCH (17:00)
[2022-07-30] MEDS ORDERED: Fluticasone NASAL Spray 16 GM Bottle NASBOTH PRN (17:14)
[2022-07-30] MEDS ORDERED: Non-Formulary Medication 1 Each (Epinephrine [Epipen] 0.3 MG/0.3 ML Pen) IM PRN (17:14)
[2022-07-30] MEDS ORDERED: Nitroglycerin 0.4 MG Tab.SL SL PRN (17:14)
[2022-07-30] MEDS ORDERED: Albuterol 8 GM Inhaler INH PRN (17:14)
[2022-07-30] MEDS ORDERED: Acetaminophen 325 MG Tab PO PRN (17:14)
[2022-07-30] MEDS ORDERED: hydrALAZINE 20 MG/ML SDV IVPUSH PRN (17:21)
[2022-07-30 19:19] LABS: CORONAVIRUS COVID-19 NAA NEGATIVE (NEGATIVE)
[2022-07-30] MEDS: Apixaban 5 MG Tab PO SCH (19:59)
[2022-07-31 01:50] VITALS: PULSE 65
[2022-07-31] MEDS ORDERED: Pantoprazole 40 MG Tab.CR PO SCH (07:30)
[2022-07-31] MEDS ORDERED: Tamsulosin 0.4 MG Cap.ER PO SCH (09:00)
[2022-07-31] MEDS ORDERED: Metoprolol Succinate 100 MG Tab.ER PO SCH (09:00)
[2022-07-31] MEDS ORDERED: Lisinopril 20 MG Tab PO SCH (09:00)
[2022-07-31] MEDS: Apixaban 5 MG Tab PO SCH (09:56)
[2022-07-31 10:21] VITALS: BP 127/83
== END 2022-07-31 12:40 | disposition home or self-care (01) | DRG 176 ==
LOC: FB.ED 12:07 → FB.MS 14:23
PROVIDERS: ADMIT Family Medicine; ATTEND Student in an Organized Health Care Education/Training Program
DX: I26.94 Multiple subsegmental thrombotic pulmonary emboli without acute cor pulmonale (principal); I73.9 Peripheral vascular disease, unspecified; Z95.818 Presence of other cardiac implants and grafts; I48.0 Paroxysmal atrial fibrillation; I25.2 Old myocardial infarction; I25.10 Atherosclerotic heart disease of native coronary artery without angina pectoris; H54.7 Unspecified visual loss; Z20.822 Contact with and (suspected) exposure to COVID-19; J44.9 Chronic obstructive pulmonary disease, unspecified; M54.9 Dorsalgia, unspecified; Z88.8 Allergy status to other drugs, medicaments and biological substances; G89.29 Other chronic pain; Z95.5 Presence of coronary angioplasty implant and graft; F17.200 Nicotine dependence, unspecified, uncomplicated; Z95.810 Presence of automatic (implantable) cardiac defibrillator; Z95.1 Presence of aortocoronary bypass graft; Z88.5 Allergy status to narcotic agent; Z91.030 Bee allergy status; Z88.7 Allergy status to serum and vaccine; Z79.82 Long term (current) use of aspirin; Z79.899 Other long term (current) drug therapy; Z86.73 Personal history of transient ischemic attack (TIA), and cerebral infarction without residual deficits; Z79.01 Long term (current) use of anticoagulants; E78.00 Pure hypercholesterolemia, unspecified; Z90.49 Acquired absence of other specified parts of digestive tract
CPT/HCPCS: 0241U; 36415; 71045; 71275; 80053; 83605; 84484; 85025; 85379; 87040; 93005; 94150; 94669; 99285; A9270-GY; Q9967

== ENCOUNTER 2022-08-16 09:44 | Emergency (ER) | payer MEDICARE ==
[2022-08-16 19:49] VITALS: BP 139/62; PULSE 86
== END 2022-08-16 10:30 | disposition home or self-care (01) ==
LOC: FB.ED 09:44
DX: L03.115 Cellulitis of right lower limb (principal); I48.91 Unspecified atrial fibrillation; I25.10 Atherosclerotic heart disease of native coronary artery without angina pectoris; E78.00 Pure hypercholesterolemia, unspecified; I10 Essential (primary) hypertension; I25.2 Old myocardial infarction; J44.9 Chronic obstructive pulmonary disease, unspecified; D64.9 Anemia, unspecified; Z79.01 Long term (current) use of anticoagulants; Z88.8 Allergy status to other drugs, medicaments and biological substances; Z88.5 Allergy status to narcotic agent; Z88.7 Allergy status to serum and vaccine; Z91.030 Bee allergy status; Z79.82 Long term (current) use of aspirin; Z79.899 Other long term (current) drug therapy
CPT/HCPCS: 99283

== ENCOUNTER 2022-10-19 09:44 | Emergency (ER) | payer MEDICARE ==
[2022-10-19] MEDS ORDERED: Ketorolac 30 MG/ML SDV IM ONE (09:59)
[2022-10-19] MEDS ORDERED: Ketorolac 30 MG/ML SDV IVPUSH ONE (10:38)
[2022-10-19] MEDS ORDERED: HYDROmorphone 2 MG/ML SDV IM ONE (11:46)
[2022-10-19] MEDS ORDERED: Ondansetron 4 MG Tab.DIS PO ONE (11:46)
[2022-10-19] MEDS ORDERED: Acetaminophen/HYDROcodone 325-5 MG Tab PO ONE (15:14)
[2022-10-19 15:32] VITALS: BP 145/55; PULSE 70
== END 2022-10-19 15:55 | disposition home or self-care (01) ==
LOC: FB.ED 09:44
DX: S82.51XA Displaced fracture of medial malleolus of right tibia, initial encounter for closed fracture (principal); S82.101A Unspecified fracture of upper end of right tibia, initial encounter for closed fracture; I48.91 Unspecified atrial fibrillation; I25.10 Atherosclerotic heart disease of native coronary artery without angina pectoris; I10 Essential (primary) hypertension; E78.00 Pure hypercholesterolemia, unspecified; J44.9 Chronic obstructive pulmonary disease, unspecified; D64.9 Anemia, unspecified; Z79.01 Long term (current) use of anticoagulants; Z79.82 Long term (current) use of aspirin; Z79.899 Other long term (current) drug therapy; Z88.8 Allergy status to other drugs, medicaments and biological substances; Z88.5 Allergy status to narcotic agent; Z88.7 Allergy status to serum and vaccine; Z91.030 Bee allergy status; Z95.1 Presence of aortocoronary bypass graft; W00.0XXA Fall on same level due to ice and snow, initial encounter
CPT/HCPCS: 73562-RT; 73610-RT; 73630-RT; 73700-RT; 96372; 96374; 99284; 99284-25; A9270-GY; J1170; J1885; Q0162

== ENCOUNTER 2023-03-29 23:02 | Emergency (ER) | payer MEDICARE ==
[2023-03-30 00:17] LABS: BASOPHILS ABSOLUTE AUTO 0.2 x10-3/uL (0.0-0.3); BASOPHILS PERCENT AUTO 2.2 % (0.3-3.8); EOSINOPHILS ABSOLUTE AUTO 0.5 x10-3/uL (0.0-0.6); EOSINOPHILS PERCENT AUTO 4.7 % (0.1-6.8); HEMATOCRIT 45.8 % (38.3-50.1); HEMOGLOBIN 15.4 g/dL (12.9-17.7); LYMPHOCYTES PERCENT AUTO 35.8 % (15.8-45.3); MEAN CORPUSCULAR HEMOGLOBIN 30.7 pg (27.0-33.3); MEAN CORPUSCULAR HGB CONC 33.7 g/dL (28.7-35.3); MEAN PLATELET VOLUME 8.9 fL (6.7-11.0); MONOCYTES ABSOLUTE AUTO 1.3 x10-3/uL (0.0-1.2); MONOCYTES PERCENT AUTO 11.6 % (5.5-15.2); NEUTROPHILS ABSOLUTE AUTO 5.1 x10-3/uL (1.7-6.9); NEUTROPHILS PERCENT AUTO 45.7 % (40.3-71.8); PLATELET COUNT,PLT 240 x10(3)uL (117-477); RED BLOOD CELL COUNT 5.03 x10(6)uL (3.90-5.90); RED CELL DISTRIBUTION WIDTH 17.1 % (12.4-15.0); WHITE BLOOD CELL COUNT,WBC 11.1 x10-3/uL (3.2-10.1)
[2023-03-30 00:19] LABS: BLOOD UREA NITROGEN,BUN 21 mg/dL (7-18); BUN/CREATININE RATIO 26.3 (9-20); CALCIUM 9.7 mg/dL (8.6-10.2); CARBON DIOXIDE,CO2 28 mmol/L (21-32); CHLORIDE,CL 105 mmol/L (100-110); CREATININE 0.8 mg/dL (0.70-1.30); ESTIMATED GFR 91 mL/min (>60); GLUCOSE RANDOM 107 mg/dL (80-116); POTASSIUM,K 4.8 mmol/L (3.5-5.3); SODIUM,NA 140 mmol/L (135-145)
[2023-03-30 00:31] LABS: BILIRUBIN,URINE NEGATIVE (NEGATIVE); GLUCOSE,URINE NORMAL (NORMAL); KETONES,URINE NEGATIVE (NEGATIVE); LEUKOCYTE ESTERASE,URINE NEGATIVE (NEGATIVE); NITRITE,URINE NEGATIVE (NEGATIVE); OCCULT BLOOD,URINE LARGE (NEGATIVE); PROTEIN,URINE NEGATIVE (NEGATIVE); UROBILINOGEN,URINE NORMAL (NEGATIVE)
[2023-03-30 00:33] LABS: APPEARANCE,URINE CLEAR (CLEAR); BACTERIA,URINE RARE (NS); COLOR,URINE YELLOW (YELLOW); RBC,URINE 0-5 (0-5); SQUAMOUS EPITHELIAL CELLS,UR OCCASIONAL (NS,R,O); WBC,URINE 0-5 (0-5)
[2023-03-30 01:20] VITALS: BP 150/76; PULSE 58
== END 2023-03-30 01:21 | disposition home or self-care (01) ==
LOC: FB.ED 23:02
DX: R31.21 Asymptomatic microscopic hematuria (principal); J45.909 Unspecified asthma, uncomplicated; J44.9 Chronic obstructive pulmonary disease, unspecified; I48.91 Unspecified atrial fibrillation; I25.2 Old myocardial infarction; I10 Essential (primary) hypertension; Z88.8 Allergy status to other drugs, medicaments and biological substances; Z88.5 Allergy status to narcotic agent; Z88.7 Allergy status to serum and vaccine; Z91.030 Bee allergy status; Z79.899 Other long term (current) drug therapy
CPT/HCPCS: 36415; 80048; 81001; 85025; 87086; 99283

== ENCOUNTER 2023-10-04 10:04 | Emergency (ER) | payer MEDICARE ==
[2023-10-04] MEDS: Ketorolac 30 MG/ML SDV IM ONE (10:42)
[2023-10-04] MEDS: Acetaminophen/oxyCODONE 325-5 MG Tab PO STA (10:43)
[2023-10-04 11:43] VITALS: BP 137/67; PULSE 57
== END 2023-10-04 12:10 | disposition home or self-care (01) ==
LOC: FB.ED 10:04
DX: M79.641 Pain in right hand (principal); Z87.39 Personal history of other diseases of the musculoskeletal system and connective tissue; I10 Essential (primary) hypertension; E78.00 Pure hypercholesterolemia, unspecified; I25.10 Atherosclerotic heart disease of native coronary artery without angina pectoris; I25.2 Old myocardial infarction; J44.9 Chronic obstructive pulmonary disease, unspecified; Z79.01 Long term (current) use of anticoagulants; Z95.5 Presence of coronary angioplasty implant and graft; Z88.5 Allergy status to narcotic agent; Z88.7 Allergy status to serum and vaccine; Z91.030 Bee allergy status; Z88.8 Allergy status to other drugs, medicaments and biological substances; Z79.82 Long term (current) use of aspirin; Z79.899 Other long term (current) drug therapy
CPT/HCPCS: 96372; 99283; A9270; J1885

== ENCOUNTER 2024-11-08 09:38 | Day surgery (SDC) | payer MEDICARE ==
[2024-11-08] MEDS ORDERED: fentaNYL 100 MCG/2 ML SDV IV ONE (09:39)
[2024-11-08] MEDS ORDERED: Midazolam 1 MG/ML 2 ML SDV IV ONE (09:39)
[2024-11-08] MEDS ORDERED: Sodium Chloride 0.9% 10 ML Syringe FLUSH PRN (10:00)
[2024-11-08] MEDS ORDERED: Lactated Ringers 1,000 ML IV PRN (10:00)
[2024-11-08] MEDS: acetaZOLAMIDE 500 MG Cap.ER PO ONE (12:10)
[2024-11-08 13:27] VITALS: BP 111/84; PULSE 55
== END 2024-11-08 12:37 | disposition home or self-care (01) ==
LOC: FB.SDS 09:38
PROVIDERS: ATTEND Ophthalmology
DX: H25.813 Combined forms of age-related cataract, bilateral (principal); I10 Essential (primary) hypertension; I48.0 Paroxysmal atrial fibrillation; I25.10 Atherosclerotic heart disease of native coronary artery without angina pectoris; E78.5 Hyperlipidemia, unspecified; F17.210 Nicotine dependence, cigarettes, uncomplicated; Z95.5 Presence of coronary angioplasty implant and graft; Z88.8 Allergy status to other drugs, medicaments and biological substances; Z79.899 Other long term (current) drug therapy; Z79.82 Long term (current) use of aspirin; Z91.030 Bee allergy status
CPT/HCPCS: 00142; 99100; A9270-GY; J2250; J3010; V2632

== ENCOUNTER 2024-11-22 09:48 | Day surgery (SDC) | payer MEDICARE ==
[2024-11-22] MEDS ORDERED: fentaNYL 100 MCG/2 ML SDV IV ONE (09:49)
[2024-11-22] MEDS ORDERED: Sodium Chloride 0.9% 10 ML Syringe IV ONE (09:49)
[2024-11-22] MEDS ORDERED: Midazolam 1 MG/ML 2 ML SDV IV ONE (09:49)
[2024-11-22] MEDS ORDERED: Lactated Ringers 1,000 ML IV PRN (10:00)
[2024-11-22] MEDS: Sodium Chloride 0.9% 10 ML Syringe FLUSH PRN (10:58)
[2024-11-22] MEDS: acetaZOLAMIDE 500 MG Cap.ER PO ONE (12:14)
[2024-11-23 11:24] VITALS: BP 141/78; PULSE 52
== END 2024-11-22 12:35 | disposition home or self-care (01) ==
LOC: FB.SDS 09:48
PROVIDERS: ATTEND Ophthalmology
DX: H26.9 Unspecified cataract (principal); I10 Essential (primary) hypertension; I48.0 Paroxysmal atrial fibrillation; I25.10 Atherosclerotic heart disease of native coronary artery without angina pectoris; F17.210 Nicotine dependence, cigarettes, uncomplicated; Z95.5 Presence of coronary angioplasty implant and graft; Z88.5 Allergy status to narcotic agent; Z79.82 Long term (current) use of aspirin; Z79.899 Other long term (current) drug therapy; Z91.030 Bee allergy status
CPT/HCPCS: A9270-GY; J2250; J3010; V2632

== ENCOUNTER 2025-02-24 06:46 | Day surgery (SDC) | payer MEDICARE ==
[~2025-02-24 06:46] MED LIST: Sodium Chloride 0.9% 10 ML Syringe FLUSH PRN
[2025-02-24] MEDS ORDERED: Propofol 200 MG/20 ML SDV IV ONE (06:47)
[2025-02-24] MEDS: Lactated Ringers 1,000 ML IV SCH (07:30)
[2025-02-24 10:07] VITALS: BP 146/74; PULSE 56
== END 2025-02-24 10:00 | disposition home or self-care (01) ==
LOC: FB.SDS 06:46
PROVIDERS: ATTEND Surgery
DX: D12.5 Benign neoplasm of sigmoid colon (principal); K62.1 Rectal polyp; K63.5 Polyp of colon; K57.30 Diverticulosis of large intestine without perforation or abscess without bleeding; K64.4 Residual hemorrhoidal skin tags; K64.8 Other hemorrhoids; I48.91 Unspecified atrial fibrillation; I25.10 Atherosclerotic heart disease of native coronary artery without angina pectoris; Z86.0100 Personal history of colon polyps, unspecified
CPT/HCPCS: 00811; 45380; 88305; 99100; J2003; J2704; J7120

== ENCOUNTER 2025-03-04 13:54 | Emergency (ER) | payer MEDICARE ==
[2025-03-04 14:12] VITALS: BP 152/89; PULSE 67
== END 2025-03-04 14:43 | disposition home or self-care (01) ==
LOC: FB.ED 13:54
DX: M10.9 Gout, unspecified (principal); F17.200 Nicotine dependence, unspecified, uncomplicated; Z88.5 Allergy status to narcotic agent; Z88.7 Allergy status to serum and vaccine; Z88.8 Allergy status to other drugs, medicaments and biological substances; Z91.030 Bee allergy status; Z79.82 Long term (current) use of aspirin; Z79.899 Other long term (current) drug therapy; Z90.49 Acquired absence of other specified parts of digestive tract
CPT/HCPCS: 99283